=== PATIENT | female | born 1950 | race Caucasian/White ===

== ENCOUNTER 2019-07-10 21:49 | Emergency (ER) | payer MEDICARE, MEDICAID, SELFPAY ==
[2019-07-10 21:52] VITALS: BP 187/113; PULSE 80; RESP 16; TEMP 36.9; O2SAT 93; BMI 25.4
--- NOTE | 2019-07-10 21:53 | ED_ITS ---
Entered by Mely Stroud, acting as scribe for Telly Walker MD HPI - Chest Pain General: Chief Complaint: Chest Pain Stated Complaint: cp/headache Time Seen by Provider: 07/10/19 21:50 Source: patient and family Mode of arrival: ambulatory History of Present Illness: HPI narrative: 68 y/o female presents to the ED with complaint of chest pain. Pt states she is SOB and is experiencing sharp pains in the center of her chest. She states she has a hx of aortic aneurysom. Upon exam, pt has a PADILLA (01/05). MD complaint: chest pain and other (PADILLA) Pertinent past history: known aortic aneurysm Timing of current episode: constant Prior episodes: Yes Pain location: substernal Pain radiation: none Quality: sharp Relieving factors: nothing Exacerbating factors: palpation Associated symptoms: Deny abdominal pain, dyspnea, fever(s), nausea or vomiting Review of Systems Const: Denies: fever, chills, body aches or change in appetite Eyes: Denies: blurry vision or eye discomfort ENMT: Denies: throat pain or dental pain Card: Reports: chest pain Resp: Denies: shortness of breath GI: Denies: abdominal pain, nausea, vomiting or diarrhea : Denies: painful urination Musc: Denies: neck pain or back pain Skin/Breast: Denies: rash Neuro: Reports: headache Psych: Denies: depression Jose Alfredo/Lymph: Denies: easy bruising All/Imm: Denies: hives PFSH ED PFSH: Statuses (acute, chronic, etc) shown below reflect problem list status as previously entered and may not be historically accurate Social History Smoking and tobacco status: never smoked Physical Exam Const: COMMON NORMALS: no apparent distress, oriented x3 and healthy appearing HENMT: COMMON NORMALS: normocephalic and head/scalp atraumatic HEAD & SCALP: normocephalic and atraumatic Eye: COMMON NORMALS: PERRL and EOMs intact bilaterally PUPIL: Yes PERRL Neck/C-Spine: COMMON NORMALS: full ROM and supple Chest: CHEST: Yes tenderness (point tenderness) Resp: COMMON NORMALS: normal respiratory effort, no retractions, no use of accessory muscles and clear to auscultation bilaterally AUSCULTATION: clear to auscultation bilaterally Cardio: COMMON NORMALS: regular rate, regular rhythm and no murmurs RATE: regular rate RHYTHM: regular rhythm GI: COMMON NORMALS: normal to inspection, nondistended, normoactive bowel sounds, soft to palpation, non-tender and no masses PALPATION: Yes soft Extremity: COMMON NORMALS: normal to inspection and full ROM Neuro: COMMON NORMALS: oriented x3, moves all extremities and no focal motor deficits Psych: COMMON NORMALS: mental status grossly normal, thought process normal and cooperative THOUGHT PROCESS: normal thought process Skin: COMMON NORMALS: no rashes or lesions noted and no wounds GENERAL SKIN EXAM: no rashes or lesions noted Course Vital Signs: Vital signs: Vital Signs Temperature 98.4 F 07/10/19 21:52 Pulse Rate 86 07/11/19 01:04 Respiratory Rate 20 H 07/11/19 01:04 Blood Pressure 178/110 07/11/19 01:04 Pulse Oximetry 96 07/11/19 01:04 MDM - Chest Pain MDM Narrative: Medical decision making narrative: Patient presents here with chest pain is atypical in nature. Patient is point tender in her anterior chest that reproduces her pain. Her initial and repeat troponins are negative. CT chest here is negative. She has no signs of cardiac cause or pulmonary bruising. Patient is stable for discharge and is to follow-up with primary care doctor in 3 to 5 days return if worsening. Lab Data: Labs: Lab Results 07/10/19 07/10/19 07/10/19 Range/Units 22:06 22:06 22:06 WBC 6.5 (4.0-10.0) 10^3/ uL RBC 4.18 (4.1-5.3) 10^6/u L Hgb 11.9 (11.5-15.3) g/dL Hct 36.8 L (37.0-47.0) % MCV 88.0 (81-99) fL MCH 28.5 (28.0-34.0) pg MCHC 32.3 (30.0-36.0) g/dL RDW 13.8 (12.1-15.1) % Plt Count 244 (130-400) 10^3/c mm MPV 10.3 (7.4-10.4) fL Neut % (Auto) 48.0 % Lymph % (Auto) 37.7 % [place] % (Auto) 9.0 % Eos % (Auto) 4.3 % Baso % (Auto) 0.8 % Neut # (Auto) 3.1 (1.8-7.7) 10^3/u L Lymph # (Auto) 2.4 (0.8-4.8) 10^3/u L [place] # (Auto) 0.6 (0.2-0.9) 10^3/u L Eos # (Auto) 0.3 (0.0-0.8) 10^3/u L Baso # (Auto) 0.1 (0.0-0.1) 10^3/u L Nucleated RBC % (a uto) 0 % Nucleated RBCs # 0.0 /100WBC Sodium 142 (136-145) mmol/L Potassium 3.5 (3.5-5.1) mmol/L Chloride 102 (98-107) mmol/L Carbon Dioxide 31 H (22-29) mmol/L Anion Gap 12.5 (5-19) BUN 11 (8-23) mg/dL Creatinine 0.8 (0.5-0.9) mg/dL GFR Calculation 71.1 L (90-130) mL/min Glucose 141 H (65-115) mg/dL Calcium 9.3 (8.5-10.5) mg/dL Total Bilirubin 0.2 (0.15-1.2) mg/dL AST 18 (0-32) U/L ALT 12 (0-33) U/L Alkaline Phosphata se 103 (35-105) IU/L Troponin T Baselin e 8 (0-10) ng/mL Troponin T 120 Min [place] (0-10) ng/mL Delta Troponin T (0-10) ABS# Total Protein 7.3 (6.6-8.7) g/dL Albumin 4.4 (3.5-5.2) g/dL Globulin 2.9 (1.3-4.6) g/dL 07/10/19 Range/Units 23:58 WBC (4.0-10.0) 10^3/ uL RBC (4.1-5.3) 10^6/u L Hgb (11.5-15.3) g/dL Hct (37.0-47.0) % MCV (81-99) fL MCH (28.0-34.0) pg MCHC (30.0-36.0) g/dL RDW (12.1-15.1) % Plt Count (130-400) 10^3/c mm MPV (7.4-10.4) fL Neut % (Auto) % Lymph % (Auto) % [place] % (Auto) % Eos % (Auto) % Baso % (Auto) % Neut # (Auto) (1.8-7.7) 10^3/u L Lymph # (Auto) (0.8-4.8) 10^3/u L [place] # (Auto) (0.2-0.9) 10^3/u L Eos # (Auto) (0.0-0.8) 10^3/u L Baso # (Auto) (0.0-0.1) 10^3/u L Nucleated RBC % (a uto) % Nucleated RBCs # /100WBC Sodium (136-145) mmol/L Potassium (3.5-5.1) mmol/L Chloride (98-107) mmol/L Carbon Dioxide (22-29) mmol/L Anion Gap (5-19) BUN (8-23) mg/dL Creatinine (0.5-0.9) mg/dL GFR Calculation (90-130) mL/min Glucose (65-115) mg/dL Calcium (8.5-10.5) mg/dL Total Bilirubin (0.15-1.2) mg/dL AST (0-32) U/L ALT (0-33) U/L Alkaline Phosphata se (35-105) IU/L Troponin T Baselin e (0-10) ng/mL Troponin T 120 Min [place] 8.10 (0-10) ng/mL Delta Troponin T 0.10 (0-10) ABS# Total Protein (6.6-8.7) g/dL Albumin (3.5-5.2) g/dL Globulin (1.3-4.6) g/dL Imaging Data^: CT Chest: Radiologist's impression: Ordering Provider/Ordering MD: Telly Walker MD Date of Service: 07/10/19 Procedure(s): CT angio chest 37739 Accession Number(s): [id number] Report Number: [id number] PROCEDURE INFORMATION: Exam: CT Angiography Chest With Contrast Exam date and time: 07/10/2019 10:41 PM Age: 68 years old Clinical indication: Shortness of breath; Chest pain; Type not specified; Prior surgery; Surgery date: 6+ months; Surgery type: RT lower lobectomy; Patient HX: HX lung CA; Additional info: Cp TECHNIQUE: Imaging protocol: Computed tomographic angiography of the chest with intravenous contrast. 3D rendering: MIP and/or 3D reconstructed images were created by the technologist. Total DLP: 527.15 mGy-cm Radiation optimization: All CT scans at this facility use at least one of these dose optimization techniques: automated exposure control; mA and/or kV adjustment per patient size (includes targeted exams where dose is matched to clinical indication); or iterative reconstruction. Contrast material: OMNI 350; Contrast volume: 87.7 ml; Contrast route: 18G; COMPARISON: CT chest w con* [id number] 05/07/2019 1:33 PM FINDINGS: Pulmonary arteries: Normal. No pulmonary emboli. Aorta: Unremarkable. No aortic aneurysm. No aortic dissection. Lungs: Right lung lobectomy changes. Right lung subsegmental atelectasis. Pleural space: Small left pleural effusion. Heart: Unremarkable. No cardiomegaly. No pericardial effusion. Lymph nodes: Unremarkable. No enlarged lymph nodes. Bones/joints: Unremarkable. No acute fracture. Soft tissues: Unremarkable. CT/CT angio chest [id number] IMPRESSION: 1. Negative for pulmonary embolus. 2. Right lung lobectomy changes. 3. Small left pleural effusion. 4. Right lung subsegmental atelectasis. EKG Data^: EKG 1: Attestation: I personally reviewed and interpreted this EKG as follows: EKG interpretation date: 07/10/19 EKG interpretation time: 21:57 Interpretation: nsr hr [address] or t wave bnormalities qrs 84 qtc 392 EKG 2: Attestation: I personally reviewed and interpreted this EKG as follows: EKG interpretation date: 07/11/19 EKG interpretation time: 00:04 Interpretation: nsr hr [address] or t wave abnormalities qrs 84 qtc 405 Discharge Plan Discharge Patient Disposition: Home, Self-Care Clinical Impression: Chest pain Qualifiers: Chest pain type: unspecified Qualified Code(s): R07.9 - Chest pain, unspecified Condition: Stable Prescriptions: New EC-Naprosyn 500 mg tablet,delayed release (DR/EC) 500 mg PO BID PRN (Reason: pain) Qty: 20 RF: 0 Discharge Orders: Discharge Order (Routine); Ordered 07/11/19 Ordered By: Telly Walker Referrals: [facility] [Other] Cecilia Rubio [Primary Care Provider] - Discharge Diet: Advance as tolerated Discharge Activity: Resume usual activity Patient Instructions: Chest Pain (ED) Coding Level of Care Code ED Investor for Chg Fwd Exam Problem Focused The documentation recorded by the Maximus durand Ashley, accurately reflects the service I personally performed and the decisions made by Denise sun Korby, MD Jul 10, 2019 21:49
--- NOTE | 2019-07-10 21:55 | XR_ITS ---
WS: [id number] CHEST XRAY TECHNIQUE: Portable chest. CLINICAL INFORMATION: COMPARISON: FINDINGS: Shallow inspiration. Heart: Cardiomegaly. Lungs: Marked elevation right hemidiaphragm is unchanged from previous. Mild chronic emphysematous ch anges. No focal infiltrates. Bones: Mild thoracic curve convex left. XR/XR chest 1V portable [id number] IMPRESSION: 1. Stable cardiomegaly. 2. Chronic elevation right hemidiaphragm is unchanged. 3. No new pulmonary infiltrates.
--- NOTE | 2019-07-10 21:56 | ECG_ITS ---
Measurements Intervals [place] Rate: 82 P: 44 NM: 134 QRS: 14 QRSD: 84 T: 27 QT: 354 QTc: 414 SINUS RHYTHM NONSPECIFIC T-WAVE ABNORMALITY Compared to ECG 03/26/2019 18:39:58 T-wave abnormality now present Electronically Signed On 07-11-2019 20:40:39 MINERAL SURVEYOR by Rene Quick M.D. [id number]
[2019-07-10 22:13] VITALS: BP 192/120; PULSE 88; RESP 20; O2SAT 94
[2019-07-10 22:15] LABS: Basophils # 0.1 10^3/uL (0.0-0.1); Basophils % 0.8 %; Eosinophils # 0.3 10^3/uL (0.0-0.8); Eosinophils % 4.3 %; Hematocrit 36.8 % (37.0-47.0); Hemoglobin 11.9 g/dL (11.5-15.3); Lymphocytes # 2.4 10^3/uL (0.8-4.8); Lymphocytes % 37.7 %; Mean Corpuscular HGB Conc 32.3 g/dL (30.0-36.0); Mean Corpuscular Hemoglobin 28.5 pg (28.0-34.0); Mean Platelet Volume 10.3 fL (7.4-10.4); Monocytes # 0.6 10^3/uL (0.2-0.9); Neutrophils # 3.1 10^3/uL (1.8-7.7); Nucleated Red Blood Cells % 0 %; Platelet Count 244 10^3/cmm (130-400); Red Blood Count 4.18 10^6/uL (4.1-5.3); Red Cell Distribution Width 13.8 % (12.1-15.1); White Blood Count 6.5 10^3/uL (4.0-10.0)
[2019-07-10 22:17] VITALS: RESP 18; O2SAT 96
[2019-07-10] MEDS: aspirin 81 mg Chew Tablet 324 MG PO (22:17)
[2019-07-10] MEDS: morphine 4 mg/mL SDV 1 mL IVP (22:17)
[2019-07-10] MEDS: nitroglycerin 0.4 mg sublingual Tablet SUBLINGUAL (22:20)
--- NOTE | 2019-07-10 22:23 | CTR_ITS ---
PROCEDURE INFORMATION: Exam: CT Angiography Chest With Contrast Exam date and time: 07/10/2019 10:41 PM Age: 68 years old Clinical indication: Shortness of breath; Chest pain; Type not specified; Prior surgery; Surgery date: 6+ months; Surgery type: RT lower lobectomy; Patient HX: HX lung CA; Additional info: Cp TECHNIQUE: Imaging protocol: Computed tomographic angiography of the chest with intravenous contrast. 3D rendering: MIP and/or 3D reconstructed images were created by the technologist. Total DLP: 527.15 mGy-cm Radiation optimization: All CT scans at this facility use at least one of these dose optimization techniques: automated exposure control; mA and/or kV adjustment per patient size (includes targeted exams where dose is matched to clinical indication); or iterative reconstruction. Contrast material: OMNI 350; Contrast volume: 87.7 ml; Contrast route: 18G; COMPARISON: CT chest w con* [id number] 05/07/2019 1:33 PM FINDINGS: Pulmonary arteries: Normal. No pulmonary emboli. Aorta: Unremarkable. No aortic aneurysm. No aortic dissection. Lungs: Right lung lobectomy changes. Right lung subsegmental atelectasis. Pleural space: Small left pleural effusion. Heart: Unremarkable. No cardiomegaly. No pericardial effusion. Lymph nodes: Unremarkable. No enlarged lymph nodes. Bones/joints: Unremarkable. No acute fracture. Soft tissues: Unremarkable. CT/CT angio chest 29739 IMPRESSION: 1. Negative for pulmonary embolus. 2. Right lung lobectomy changes. 3. Small left pleural effusion. 4. Right lung subsegmental atelectasis. Radiation Dose CTDIVOL = (mGy): DLP = 527.15 (mGy-cm)
[2019-07-10 22:30] VITALS: BP 161/107; PULSE 81; RESP 17; O2SAT 95
[2019-07-10 22:35] LABS: Alanine Aminotransferase 12 U/L (0-33); Albumin Level 4.4 g/dL (3.5-5.2); Alkaline Phosphatase 103 IU/L (35-105); Anion Gap 12.5 (5-19); Aspartate Amino Transferase 18 U/L (0-32); Blood Urea Nitrogen 11 mg/dL (8-23); Calcium 9.3 mg/dL (8.5-10.5); Carbon Dioxide 31 mmol/L (22-29); Chloride 102 mmol/L (98-107); Creatinine Clr Calc Pharmacy 53.3163; Globulin 2.9 g/dL (1.3-4.6); Glomerular Filtration Rate 71.1 mL/min (90-130); Glucose 141 mg/dL (65-115); Potassium 3.5 mmol/L (3.5-5.1); Sodium 142 mmol/L (136-145); Total Bilirubin 0.2 mg/dL (0.15-1.2); Total Protein 7.3 g/dL (6.6-8.7)
[2019-07-10 22:37] LABS: Troponin(5th) Baseline 8 ng/mL (0-10)
[2019-07-10] MEDS: iohexol 350 mg/mL 100 mL Btl IV (22:48)
[2019-07-10 23:00] VITALS: BP 161/107
[2019-07-10 23:30] VITALS: PULSE 80; RESP 20; O2SAT 98
[2019-07-11] VITALS: BP 185/109; PULSE 78; RESP 22; O2SAT 97
--- NOTE | 2019-07-11 00:03 | PC.NURSE ---
EKG done at 0000 and shown to ER doctor
[2019-07-11 00:30] VITALS: BP 165/113; PULSE 83; RESP 28; O2SAT 97
[2019-07-11 01:00] VITALS: BP 165/113; PULSE 88; RESP 14; O2SAT 95
[2019-07-11 01:04] VITALS: BP 178/110; PULSE 86; RESP 20; O2SAT 96
[2019-07-11 01:22] VITALS: O2SAT 98
--- NOTE | 2019-07-11 03:56 | ECG_ITS ---
Measurements Intervals [place] Rate: 84 P: 54 VT: 132 QRS: 23 QRSD: 84 T: 29 QT: 366 QTc: 433 SINUS RHYTHM Compared to ECG 03/26/2019 18:39:58 No significant changes Electronically Signed On 07-11-2019 20:42:07 OVEN TENDER [employer]AGELS by Rene Quick M.D. [id number]
== END 2019-07-11 01:26 | disposition home or self-care (01) ==
PROVIDERS: Emergency Provider Emergency Medicine; PCP Nurse Practitioner Family
DX: R07.89 Other chest pain (principal)
CPT/HCPCS: 36415; 71045; 71275; 80053; 84484; 85025; 93005; 96374; 96375; 99283; 99284; J2270; Q9967

== ENCOUNTER 2019-11-28 09:17 | Outpatient (CLI) | payer MEDICARE, MEDICAID, SELFPAY ==
--- NOTE | 2019-11-28 09:28 | CT_ITS ---
WS: [id number] CT NECK TECHNIQUE: Contrast-enhanced CT of the neck with coronal and sagittal reformatted images. CLINICAL INFORMATION: LOCALIZED SWELLING, MASS LUMP NECK COMPARISON: DLP: 559.[address] scans at [facility] use at least one of these dose optimization techniques: automat ed exposure control; mA and/or kV adjustment per patient size (includes targeted exams where dose is matched to clinical indication); or iterative reconstruction. FINDINGS: Parotid glands are normal in appearance. Normal right submandibular gland. Left submandibular gland h as been resected. Tongue base is normal in appearance. Normal parapharyngeal fat. No evidence of supr aglottic or glottic mass. Normal epiglottis and piriform sinuses. Nodular right thyroid unchanged in appearance. No cervical lymphadenopathy. Right globe prosthesis. Mastoid air cells are well aerated. Frontal sinu ses are well aerated. A few prominent lymph nodes in the supraclavicular regions bilaterally not path ologically enlarged. Lung apices are well aerated. Slightly ectatic ascending thoracic aorta measurin g 4.[address]/CT neck w con* [id number] IMPRESSION: 1. No evidence of supraglottic or glottic mass. 2. Resection of the left submandibular gland. Salivary glands otherwise unrema rkable. 3. A few prominent cervical and supraclavicular lymph nodes although not patho logically enlarged. No cervical lymphadenopathy. 4. Nodular right thyroid gland is unchanged. 5. Ectatic ascending thoracic aorta measuring 4.0 CM. 6. Right globe prosthesis.
--- NOTE | 2019-11-28 09:29 | FL_ITS ---
WS: [id number] ESOPHAGRAM TECHNIQUE: Double contrast examination was performed with thin and thick barium. Upright and ESTEVES imag es were obtained. CLINICAL INFORMATION: LOCALIZED SWELLING MASS LUMP NECK COMPARISON: None. FINDINGS: Swallowing: Normal oropharyngeal phase. No evidence of aspiration or penetration. Esophagus: Mild esophageal dysmotility with delayed emptying and tertiary contractions. Mild esophage al dilatation with standing column of contrast in the upright imaging. No stricture or mass. Gastroesophageal reflux: None observed Fluoroscopy time: 3.1 minutes. FL/FL barium swallow [id number] IMPRESSION: 1. No evidence of aspiration penetration. 2. Moderate esophageal dysmotility with tertiary contractions and delayed empt beverly. Standing column of contrast in the upright imaging with mild esophageal d ilatation. 3. No evidence of esophageal stricture or obstructing mass. 4. No significant hiatal hernia. 5. Patient could not swallow the barium tablet. 6. No reflux observed.
[2019-11-28 10:24] LABS: Blood Urea Nitrogen 13 mg/dL (8-23); Glomerular Filtration Rate 70.9 mL/min (90-130)
[2019-11-28] MEDS: iohexol 300 mg/mL 100 mL Btl IV (10:52)
== END 2019-11-28 09:18 | disposition home or self-care (01) ==
LOC: CT 09:21
PROVIDERS: PCP Nurse Practitioner Family; Visit Provider Specialist
DX: R22.1 Localized swelling, mass and lump, neck (principal); R13.19 Other dysphagia
CPT/HCPCS: 36415; 70491; 74220; 82565; 84520

== ENCOUNTER 2020-11-19 10:22 | Outpatient (CLI) | payer MEDICARE, MEDICAID, SELFPAY ==
--- NOTE | 2020-11-19 11:00 | CT_ITS ---
WS: [id number] CT CHEST TECHNIQUE: Noncontrast CT of the chest with coronal and sagittal reformatted images. CLINICAL INFORMATION: cancer survelliance COMPARISON: CT chest July 10, 2019 and DLP: 639.[address] scans at [facility] use at least one of these dose optimization techniques: automat ed exposure control; mA and/or kV adjustment per patient size (includes targeted exams where dose is matched to clinical indication); or iterative reconstruction. FINDINGS: Prior postoperative changes partial right lobectomy. Postoperative changes along the right infrahilar lung. Mild volume loss right lung elevation right hemidiaphragm unchanged. Moderate chronic emphysem atous changes. No mediastinal or hilar lymphadenopathy. Ectatic ascending thoracic aorta measuring 3. 8 cm unchanged from previous. Normal caliber descending thoracic aorta. No suspicious pulmonary parenchymal opacities. No evidence of recurrent or progressive disease in the chest. No axillary lymphadenopathy. A few tiny low-attenuation lesions right thyroid lobe appear unc hanged. A few tiny low-attenuation lesions in the liver too small to characterize may represent hepatic cysts . This appears similar to previous. Adrenal glands are normal. Marked fatty atrophy of the pancreas. CT/CT chest wo con [id number] IMPRESSION: 1. Prior postoperative changes right thoracotomy with partial right lung resec tion. 2. No evidence of recurrent or progressed disease. No suspicious pulmonary par enchymal opacities. 3. No mediastinal or hilar lymphadenopathy. 4. Stable ectatic ascending thoracic aorta measuring 3.8 cm. 5. No other changes from previous.
== END 2020-11-19 10:23 | disposition home or self-care (01) ==
LOC: RADWPI 10:28
PROVIDERS: PCP Nurse Practitioner Family; Visit Provider Internal Medicine Pulmonary Disease
DX: Z85.118 Personal history of other malignant neoplasm of bronchus and lung (principal); I77.810 Thoracic aortic ectasia
CPT/HCPCS: 71250

== ENCOUNTER 2020-11-27 13:25 | Outpatient (CLI) | payer MEDICARE, MEDICAID, SELFPAY ==
--- NOTE | 2020-11-27 13:37 | MM_ITS ---
WS: [id number] SCREENING DIGITAL MAMMOGRAM WITH CAD HISTORY: SCREEN COMPARISON: 08/03/2017 and 07/17/2015 Bilateral CC and MLO views submitted. Computer aided detection analyzed. Breast composition: There are scattered areas of fibroglandular density. No suspicious masses, microc alcifications or architectural distortion. MM/[place] [id number] IMPRESSION: BI-RADS: 1-Negative FOLLOW UP: 1 Year Follow-up
== END 2020-11-27 13:26 | disposition home or self-care (01) ==
LOC: RADSHAW 13:29
PROVIDERS: PCP Nurse Practitioner Family; Visit Provider Nurse Practitioner Family
DX: Z12.31 Encounter for screening mammogram for malignant neoplasm of breast (principal)
CPT/HCPCS: 77067

== ENCOUNTER → 2020-12-21 10:58 | Outpatient (BNVA) | payer MEDICARE, MEDICAID, SELFPAY | PROVIDERS: PCP Nurse Practitioner Family; Visit Provider Internal Medicine Rheumatology | DX: M05.79 Rheumatoid arthritis with rheumatoid factor of multiple sites without organ or systems involvement (principal); Z11.59 Encounter for screening for other viral diseases; Z11.1 Encounter for screening for respiratory tuberculosis; Z79.899 Other long term (current) drug therapy; Z71.89 Other specified counseling; M19.90 Unspecified osteoarthritis, unspecified site | CPT/HCPCS: 36415; 71046; 73130; 73630; 82306; 84132; 85651; 86140; 86480; 86704; 86803; 87340; 99204 ==

== ENCOUNTER 2020-12-21 12:38 | Outpatient (CLI) | payer MEDICARE, MEDICAID, SELFPAY ==
--- NOTE | 2020-12-21 12:51 | XR_ITS ---
WS: [id number] XR hand LT min 3V* [id number] REASON FOR EXAM: Z79.899 - Other half-way (current) drug therapy FINDINGS: Overall normal bony mineralization. Mild to moderate joint space narrowing with subchondral sclerosis in the MIP and DIP joints of the fi ngers and thumb. As on the left hand there is also involvement of the second metacarpal phalangeal bernabe int. There is subluxation of the carpal metacarpal joint of the thumb with extensive subchondral sclerosis and subchondral cystic change with significant subluxation of the metacarpal. There is no erosive change in their are no periaortic articular soft tissue calcifications. No calcification in the triangular fibrocartilage. 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
--- NOTE | 2020-12-21 12:51 | XR_ITS ---
WS: [id number] XR foot LT min 3V* [id number] REASON FOR EXAM: Z79.899 - Other shelter (current) drug therapy FINDINGS: Normal overall bone density. No focal bone lesion. Mild to moderate narrowing of the joint spaces with subarticular sclerosis in the DIP and MIP joints of the toes. Mild medial deviation at the metatarsal-phalangeal joint of the great toe. No bony erosions. No periarticular soft tissue abnormality. XR/XR foot LT min 3V* [id number] IMPRESSION: Arthropathy consistent with osteoarthritis.
--- NOTE | 2020-12-21 12:51 | XR_ITS ---
WS: [id number] XR foot RT min 3V* [id number] REASON FOR EXAM: Z79.899 - Other retirement (current) drug therapy FINDINGS: Overall normal bone density. No focal bone lesion. Mild to moderate narrowing of the joint space with subchondral sclerosis in the DIP and MIP joints of the toes. There is mild mild medial deviation of the metatarsal-phalangeal joint of the great toe. No erosions and no periarticular soft tissue abnormalities. XR/XR foot RT min 3V* [id number] IMPRESSION: Arthropathy compatible with osteoarthritis.
--- NOTE | 2020-12-21 12:51 | XR_ITS ---
WS: [id number] XR hand RT min 3V* [id number] REASON FOR EXAM: Z79.899 - Other halfway (current) drug therapy FINDINGS: The overall than density is within normal limits. There is mild joint space narrowing with subchondral sclerosis in the DIP and PIP joints of the finge rs and thumb. There are no erosions. There are no periarticular soft tissue calcifications. There is severe arthropathic change at the carpometacarpal joint of the thumb with significant erosio n of the greater multangular with subchondral sclerosis, bony spurring, and subluxation. Notably there is the same appearing arthropathic change in the metatarsal-phalangeal joint of the fir st finger. There is no calcification in the triangular fibrocartilage. XR/XR hand RT min 3V* [id number] IMPRESSION: Arthropathy as above most consistent with osteoarthritis.
--- NOTE | 2020-12-21 12:51 | XR_ITS ---
WS: [id number] Exam: XR chest 2V* [id number] Date/Time of Exam: 12/21/2020 12:51 PM Reason For Exam: Z79.899 - Other meterman (current) drug therapy Comparison 07/10/2019. Chronic elevation of the right diaphragm. The lungs are clear. Normal cardiomediastinal silhouette. B veronica structures are intact. XR/XR chest 2V* [id number] IMPRESSION: 1. Chronically elevated right diaphragm. No acute process and no change.
[2020-12-21 14:10] LABS: C Reactive Protein 7.2 mg/L (0.0-4.9); Potassium 3.8 mmol/L (3.5-5.1)
[2020-12-21 14:25] LABS: 25 Hydroxy Vitamin D 35 ng/mL (30-100)
[2020-12-21 14:41] LABS: Hepatitis B Core AB, Total Non-Reactive (Nonreactive); Hepatitis B Surface Antigen Non-Reactive (Nonreactive); Hepatitis C Virus Antibody Non-Reactive (Nonreactive)
[2020-12-21 15:26] LABS: Erythrocyte Sedimentation Rate 24 mm/hr (0-15)
[2020-12-22 13:22] LABS: Cyclic Citrullinated Peptide <16 UNITS
[2020-12-23 15:06] LABS: Quantiferon Mitogen >10.00 IU/mL; Quantiferon Nil 0.02 IU/mL; Quantiferon Plus TB1 0.15 IU/mL; Quantiferon Plus TB2 0.22 IU/mL; Quantiferon TB Gold NEGATIVE (NEGATIVE)
== END 2020-12-21 12:39 | disposition home or self-care (01) ==
PROVIDERS: PCP Nurse Practitioner Family; Visit Provider Internal Medicine Rheumatology
DX: M19.90 Unspecified osteoarthritis, unspecified site (principal); Z79.899 Other long term (current) drug therapy; Z11.59 Encounter for screening for other viral diseases; Z11.1 Encounter for screening for respiratory tuberculosis
CPT/HCPCS: 36415; 71046; 73130; 73630; 82306; 84132; 85651; 86140; 86480; 86704; 86803; 87340

== ENCOUNTER 2021-02-01 21:37 | Emergency (ER) | payer MEDICARE, MEDICAID, SELFPAY ==
[2021-02-01 21:45] VITALS: BP 176/97; PULSE 82; RESP 20; TEMP 36.7; O2SAT 92; BMI 26.2
--- NOTE | 2021-02-01 22:32 | CTR_ITS ---
PROCEDURE INFORMATION: Exam: CT Head Without Contrast Exam date and time: 02/01/2021 10:32 PM Age: 70 years old Clinical indication: Pain and injury or trauma; Fall; Blunt trauma (contusions or hematomas); Dizziness and other: Off balance; Headache; Patient HX: On blood thinners; Additional info: Head injury, h/a x 2 weeks TECHNIQUE: Imaging protocol: Computed tomography of the head without contrast. Radiation optimization: All CT scans at this facility use at least one of these dose optimization techniques: automated exposure control; mA and/or kV adjustment per patient size (includes targeted exams where dose is matched to clinical indication); or iterative reconstruction. COMPARISON: 1. CT neck w con* [id number] 2019-11-28 10:[address] neck w con* [id number] 2019-05-07 13:28 RADIATION DOSE METRICS: Total DLP (mGy-cm): 790.82 FINDINGS: Brain: Diffuse mild cerebral age related volume loss. Mild patchy low attenuation in the white matter compatible with mild chronic small vessel ischemic disease. No midline shift, mass, fluid collection, or evidence of hemorrhage. Cerebral ventricles: Ventricular enlargement proportional to volume loss. Paranasal sinuses: Visualized sinuses are unremarkable. No fluid levels. Mastoid air cells: Visualized mastoid air cells are well aerated. Orbital cavity: Right globe prosthesis. Bones/joints: Unremarkable. No acute fracture. Soft tissues: Unremarkable. CT/CT head con* [id number] IMPRESSION: Mild involutional changes, no acute intracranial abnormality. Radiation Dose CTDIVOL = (mGy): DLP = 790.82 (mGy-cm)
--- NOTE | 2021-02-02 00:31 | ED_ITS ---
HPI - Headache General: Chief Complaint: Headache Stated Complaint: migraine x 2 weeks Time Seen by Provider: 02/02/21 00:18 Source: patient Mode of arrival: ambulatory Limitations: no limitations History of Present Illness: HPI Narrative: 70-year-old female states has been having a headache for about a week and a half. States she had a fall and headache began after that. States she has a long history of migraines this headache began gradually and is worsening. States that it is also waxed and waned currently her headaches a 7 out of 10. She states this feels like her p revious migraines it is not the worst headache of her life. Denies any neck pain. Denies any vomiting. She states it is improved with rest and dark rooms and worsened by loud sounds and bright lights. Associated symptoms: Deny chest pain, fever(s), nausea, rash or vomiting Review of Systems Const: Denies: fever(s), chills, body aches or change in appetite Eyes: Denies: blurry vision or eye discomfort ENMT: Denies: throat pain or dental pain Card: Denies: chest pain Resp: Denies: dyspnea GI: Denies: abdominal pain, nausea, vomiting or diarrhea : Denies: dysuria Musc: Denies: neck pain or back pain Skin/Breast: Denies: rash Neuro: Reports: headache(s) Psych: Denies: depression Jose Alfredo/Lymph: Denies: easy bruising All/Imm: Denies: urticaria PFSH ED PFSH: Medical History Atypical chest pain Benign essential HTN Blind right eye Chronic steroid use Dyslipidemia (high LDL; low HDL) H/O: lung cancer High risk medication use 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 History of thyroid cancer Hyperlipidemia Hypertension Immunization counseling Seropositive rheumatoid arthritis of multiple sites SOB (shortness of breath) Thoracic aortic aneurysm (TAA) Urgency incontinence Urgency of urination Surgical History H/O cardiac catheterization 09/2007 H/O total thyroidectomy also had a thyroid biopsy 09/14/2015 H/O: hysterectomy History of bladder surgery History of eye surgery History of lobectomy of lung right lower lung S/P appendectomy 1980 Family History Mother Colon cancer Hyperlipidemia Hypertension Stroke Heart disease CAD (coronary artery disease) Cancer Family/Other Breast cancer aunt maternal Cancer Family/Other Colon cancer uncle, maternal Stroke uncle maternal Brother Hypertension Brother Hyperlipidemia Grandmother Stroke maternal Other Suicide Denies family history of Clotting disorder Chronic kidney disease (CKD) Anesthesia complication Bleeding disorder Lung disease Social History Second hand smoke exposure: Yes Smoking risk assessment/counseling performed?: Yes Alcohol intake: never Lives independently: Yes Household members: family Marital status: / Current occupational status: disabled Pets and animals: Yes History of recent travel: No Current gender identity: Female Physical Exam Const: COMMON NORMALS: no acute distress, patient oriented x3 and healthy appearing HENMT: COMMON NORMALS: normocephalic and atraumatic HEAD & SCALP: normocephalic and atraumatic Eye: COMMON NORMALS: Equal, round and reactive pupils present and EOMs intact bilaterally PUPIL: Yes Equal, round and reactive pupils present Neck/C-Spine: COMMON NORMALS: full ROM and supple Chest: COMMONS NORMALS: normal inspection of the chest and normal palpation of entire chest wall Resp: COMMON NORMALS: normal respiratory effort, No retractions, No use of accessory muscles and clear to auscultation bilaterally AUSCULTATION: clear to auscultation bilaterally Cardio: COMMON NORMALS: regular rate, regular rhythm and No murmurs present (Cardio) RATE: regular rate RHYTHM: regular rhythm GI: COMMON NORMALS: Normal to inspection, nondistended, normoactive bowel sounds present, Soft to palpation, non-tender and no masses PALPATION: Yes Soft to palpation Extremity: COMMON NORMALS: normal to inspection and full ROM Neuro: COMMON NORMALS: patient oriented x3, moves all extremities and no focal motor deficits Psych: COMMON NORMALS: mental status grossly normal, Normal thought process present and cooperative THOUGHT PROCESS: Normal thought process present Skin: COMMON NORMALS: no rashes or lesions noted and no wounds GENERAL SKIN EXAM: no rashes or lesions noted Course Vital Signs: Vital signs: Vital Signs Temperature 98.1 F 02/01/21 21:45 Pulse Rate 82 02/01/21 21:45 Respiratory Rate 20 H 02/01/21 21:45 Blood Pressure 176/97 02/01/21 21:45 Pulse Oximetry 92 02/01/21 21:45 MDM - Headache MDM Narrative: Medical decision making narrative: Patient presents here with headache that is consistent with her previous migraine headaches. Her head CT here is normal she has no signs of meningitis or subarachnoid hemorrhage. Her headache is resolved after Reglan and Benadryl. She is stable for discharge is to follow-up with PCP and return if worsening. Imaging Data^: CT Head: Attestation: I personally reviewed and interpreted this imaging study as follows: Radiologist's impression: [employer] [place] [address] CT Scan Report Signed Patient: Kellen Chauhan Unit #: [id number] : 1950 Age/Sex: 70 / F ADM Date: 0 02/01/21 Loc: ER Room/Bed: Attending Dr: Ordering Provider/Ordering MD: Minna Fraser Sr, CUTTING AND SPLICING SUPERVISOREmanuel Date of Service: 02/01/21 Procedure(s): CT head wo con* [id number] Accession Number(s): [id number] Report Number: [id number] PROCEDURE INFORMATION: Exam: CT Head Without Contrast Exam date and time: 02/01/2021 10:32 PM Age: 70 years old Clinical indication: Pain and injury or trauma; Fall; Blunt trauma (contusions or hematomas); Dizziness and other: Off balance; Headache; Patient HX: On blood thinners; Additional info: Head injury, h/a x 2 weeks TECHNIQUE: Imaging protocol: Computed tomography of the head without contrast. Radiation optimization: All CT scans at this facility use at least one of these dose optimization techniques: automated exposure control; mA and/or kV adjustment per patient size (includes targeted exams where dose is matched to clinical indication); or iterative reconstruction. COMPARISON: 1. CT neck w con* [id number] 2019-11-28 10:[address] neck w con* [id number] 2019-05-07 13:28 RADIATION DOSE METRICS: Total DLP (mGy-cm): 790.82 FINDINGS: Brain: Diffuse mild cerebral age related volume loss. Mild patchy low attenuation in the white matter compatible with mild chronic small vessel ischemic disease. No midline shift, mass, fluid collection, or evidence of hemorrhage. Cerebral ventricles: Ventricular enlargement proportional to volume loss. Paranasal sinuses: Visualized sinuses are unremarkable. No fluid levels. Mastoid air cells: Visualized mastoid air cells are well aerated. Orbital cavity: Right globe prosthesis. Bones/joints: Unremarkable. No acute fracture. Soft tissues: Unremarkable. CT/CT head wo con* [id number] IMPRESSION: Mild involutional changes, no acute intracranial abnormality. Radiation Dose CTDIVOL = (mGy): DLP = 790.82 (mGy-cm) Dictated By: Gerald Kay MD Signed By: Gerald Kay MD Signed Date/Time: 02/01/212317 DD/ 16 Discharge Plan Discharge Patient Disposition: Home Clinical Impression: Headache Qualifiers: Headache type: unspecified Headache chronicity pattern: unspecified pattern Intractability: not intractable Qualified Code(s): R51.9 - Headache, unspecified Condition: Stable Prescriptions: No Action aspirin [Adult Low Dose Aspirin] 81 mg tablet,delayed release (DR/EC) 81 mg PO DAILY RF: 0 buspirone 5 mg tablet 5 mg PO TID RF: 0 clopidogrel 75 mg tablet 75 mg PO DAILY RF: 0 diphenhydramine HCl 50 mg capsule 50 mg PO DAILY RF: 0 duloxetine 60 mg capsule,delayed release(DR/EC) 60 mg PO BID RF: 0 furosemide 20 mg tablet 20 mg PO DAILY RF: 0 levothyroxine 75 mcg capsule 75 mcg PO DAILY RF: 0 losartan 100 mg tablet 100 mg PO DAILY RF: 0 quetiapine 300 mg tablet 300 mg PO DAILY RF: 0 quetiapine 50 mg tablet 50 mg PO DAILY RF: 0 simvastatin 40 mg tablet 40 mg PO DAILY RF: 0 vitamin B complex [B Complex-Vitamin B12] Tablet 1 tab PO DAILY RF: 0 oxybutynin chloride 15 mg tablet extended release 24hr 15 mg PO DAILY Qty: 30 RF: 12 hydroxyzine pamoate 25 mg capsule 25 mg PO TID PRN (Reason: itching) RF: 0 diclofenac sodium 75 mg tablet,delayed release (DR/EC) 75 mg PO BID PRN (Reason: pain) RF: 0 gabapentin 100 mg capsule 100 mg PO TID RF: 0 carvedilol 12.5 mg tablet 12.5 mg PO BID Qty: 60 RF: 5 albuterol sulfate 90 mcg/actuation aerosol powdr breath activated 1 inh inhalation QID PRN (Reason: shortness of breath or wheezing) Qty: 1 RF: 3 methotrexate sodium 2.5 mg tablet 15 mg PO .Q7days Qty: 30 RF: 3 pantoprazole 40 mg tablet,delayed release (DR/EC) 40 mg PO DAILY Qty: 30 RF: 3 folic acid 1 mg tablet 1 mg PO DAILY Qty: 90 RF: 3 amlodipine 5 mg tablet 5 mg PO DAILY Qty: 30 RF: 5 Discharge Orders: Discharge ED (Routine); Ordered 02/02/21 Ordered By: Telly Walker Referrals: Cecilia Rubio FNP [Primary Care Provider] - 1-3 days Discharge Diet: Advance as tolerated Discharge Activity: Resume usual activity Patient Instructions: Acute Headache (ED) Coding Level of Care Code ED [facility] Sharpshooter for Chg Fwd Exam Comprehensive
[2021-02-02] MEDS: diphenhydrAMINE 50 mg/mL SDV 1mL 25 MG IVP (00:50)
[2021-02-02] MEDS: metoclopramide 5 mg/mL SDV 2 mL IVP (00:51)
[2021-02-02] MEDS: ketorolac 30 mg/mL INJ 10 MG IVP (00:51)
[2021-02-02 01:25] VITALS: BP 142/78; PULSE 88; RESP 18; O2SAT 98
== END 2021-02-02 01:31 | disposition home or self-care (01) ==
PROVIDERS: Emergency Provider Emergency Medicine; PCP Nurse Practitioner Family
DX: R51.9 Headache, unspecified (principal); Z79.82 Long term (current) use of aspirin; Z79.02 Long term (current) use of antithrombotics/antiplatelets; I10 Essential (primary) hypertension; E78.5 Hyperlipidemia, unspecified; Z85.118 Personal history of other malignant neoplasm of bronchus and lung; Z85.850 Personal history of malignant neoplasm of thyroid; Z85.89 Personal history of malignant neoplasm of other organs and systems; Z90.2 Acquired absence of lung [part of]; Z77.22 Contact with and (suspected) exposure to environmental tobacco smoke (acute) (chronic)
CPT/HCPCS: 70450; 96374; 96375; 99283; J1200; J1885; J2765

== ENCOUNTER 2021-02-17 12:59 | Emergency (ER) | payer MEDICARE, MEDICAID, SELFPAY ==
[2021-02-17 13:07] VITALS: BP 153/96; PULSE 78; RESP 16; TEMP 36.8; O2SAT 97; BMI 27.2
--- NOTE | 2021-02-17 13:19 | CT_ITS ---
WS: [id number] CT scan of the head, 02/17/2021 Clinical Data: rule out brain bleed Comparison: CT head, 02/01/2021. DLP: 819.[address] scans at [facility] use at least one of these dose optimization techniques: automated e xposure control; mA and/or kV adjustment per patient size (includes targeted exams where dose is matc hed to clinical indication); or iterative reconstruction. Findings: The ventricular system is slightly dilated without shift. No recent infarct or hemorrhage is seen. Th ere are no abnormal intracerebral masses. The cerebellum and brainstem are not remarkable. Bony windows of the skull and skull base show no fractures or erosions. The mastoid air cells, internal salesperson al auditory canals, sella turcica and paranasal sinuses are unremarkable. 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 CT/CT head wo con* [id number] Impression: Moderate cerebral atrophy.
[2021-02-17] MEDS: tetanus-dipt-pertussis 0.5 mL SDV IM (13:30)
[2021-02-17] MEDS: acetaminophen 500 mg Tablet PO (13:35)
--- NOTE | 2021-02-17 13:51 | W.ED.GENADLT ---
HPI - General Adult General: Chief complaint: Wound/Laceration Stated complaint: WOKE W/PAIN 3 DAYS AGO BEHIND L EAR:NO BETTER Time Seen by Provider: 02/17/21 13:18 History of Present Illness: HPI narrative: Patient is a 70-year-old female who was seen and evaluated 02/02/2021 for headache who presents the emergency room after she was bit in the back in the back of her head by an insect. Patient denies any fever/chill, seizures, neurological symptoms. Denies any nausea/vomiting, rash, joint pain, melena, or hematochezia. Onset: 3 days ago Duration:3 days Location:home Severity:mild Review of Systems Narrative: Constitutional: No fever, no chills. HEENT: No vision changes CV: No chest pain, no palpitations PULM: no cough, no dyspnea. GI: No abdominal pain, no N/V/D. : No dysuria MSKEL: No muscle pain SKIN: +L scalp pain and erythema NEURO: No headache, no focal weakness. 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 History of thyroid cancer Hyperlipidemia Hypertension Immunization counseling Seropositive rheumatoid arthritis of multiple sites SOB (shortness of breath) Thoracic aortic aneurysm (TAA) Urgency incontinence Urgency of urination Surgical History H/O cardiac catheterization 09/2007 H/O total thyroidectomy also had a thyroid biopsy 09/14/2015 H/O: hysterectomy History of bladder surgery History of eye surgery History of lobectomy of lung right lower lung S/P appendectomy 1979 Family History Mother Colon cancer Hyperlipidemia Hypertension Stroke Heart disease CAD (coronary artery disease) Cancer Family/Other Breast cancer aunt maternal Cancer Family/Other Colon cancer uncle, maternal Stroke uncle maternal Brother Hypertension Brother Hyperlipidemia Grandmother Stroke maternal Other Suicide Denies family history of Clotting disorder Chronic kidney disease (CKD) Anesthesia complication Bleeding disorder Lung disease Social History Second hand smoke exposure: Yes Smoking risk assessment/counseling performed?: Yes Alcohol intake: never Lives independently: Yes Household members: family Marital status: / Current occupational status: disabled Pets and animals: Yes History of recent travel: No Current gender identity: Female Female Reproductive History: Date of last menstrual period: 08/20/20 Physical Exam Narrative: EXAM NARRATIVE: Head: Atraumatic Eyes: PERRL, conjunctiva without injection ENT: Mucous membrane moist NECK: Supple, ROM intact LUNGS: LCTAB, no crackles/rhonchi CV: RRR ABDOMEN: Soft, nontender in all quadrants EXTREMITY: Normal ROM SKIN: +L postauricular erythema with induration that is tender to palpation NEURO: Awake and alert, no focal motor deficits PSYCH: Normal mood and affect Course Vital Signs: Vital signs: Vital Signs Temperature 98.2 F 02/17/21 13:07 Pulse Rate 78 02/17/21 13:07 Respiratory Rate 16 02/17/21 13:07 Blood Pressure 153/96 02/17/21 13:07 Pulse Oximetry 97 02/17/21 13:07 MDM - General Adult MDM Narrative: Medical decision making narrative: 70-year-old female who presents emergency room with redness and central ulceration in the back. No suspicion for Lyme disease given no targetoid lesion currently. Patient has mild erythema surrounding with central ulceration. Bedside ultrasound did not show any signs of any acute underlying abscess. Decision was made to not I&D the lesion. I have offered antibiotics and patient agrees with close outpatient follow-up. Rx Keflex 500 mg twice daily. I have given patient strict follow up with Dr. Cecilia Rubio in the nxt 48 hrs to reevaluate the lesion to ensure that we are not dealing with lyme disease and to see if there is any improvement. Disposition: Discharge. Patient counseled regarding diagnostic impression, treatment plan. Patient given ED strict return precautions to return for continuation, worsening, or development of new symptoms. Instructed to f/u w/ PCP regarding symptoms today. Patient verbalized understanding. Discharge Plan Discharge Patient Disposition: Home Clinical Impression: Cellulitis Condition: Stable Prescriptions: New cephalexin 500 mg capsule 500 mg PO BID 7 Days Qty: 14 RF: 0 acetaminophen 500 mg tablet 500 mg PO Q6H PRN (Reason: pain) 5 Days Qty: 20 RF: 0 No Action aspirin [Adult Low Dose Aspirin] 81 mg tablet,delayed release (DR/EC) 81 mg PO DAILY RF: 0 buspirone 5 mg tablet 5 mg PO TID RF: 0 clopidogrel 75 mg tablet 75 mg PO DAILY RF: 0 diphenhydramine HCl 50 mg capsule 50 mg PO DAILY RF: 0 duloxetine 60 mg capsule,delayed release(DR/EC) 60 mg PO BID RF: 0 furosemide 20 mg tablet 20 mg PO DAILY RF: 0 levothyroxine 75 mcg capsule 75 mcg PO DAILY RF: 0 losartan 100 mg tablet 100 mg PO DAILY RF: 0 quetiapine 300 mg tablet 300 mg PO DAILY RF: 0 quetiapine 50 mg tablet 50 mg PO DAILY RF: 0 simvastatin 40 mg tablet 40 mg PO DAILY RF: 0 vitamin B complex [B Complex-Vitamin B12] Tablet 1 tab PO DAILY RF: 0 oxybutynin chloride 15 mg tablet extended release 24hr 15 mg PO DAILY Qty: 30 RF: 12 hydroxyzine pamoate 25 mg capsule 25 mg PO TID PRN (Reason: itching) RF: 0 diclofenac sodium 75 mg tablet,delayed release (DR/EC) 75 mg PO BID PRN (Reason: pain) RF: 0 gabapentin 100 mg capsule 100 mg PO TID RF: 0 carvedilol 12.5 mg tablet 12.5 mg PO BID Qty: 60 RF: 5 albuterol sulfate 90 mcg/actuation aerosol powdr breath activated 1 inh inhalation QID PRN (Reason: shortness of breath or wheezing) Qty: 1 RF: 3 methotrexate sodium 2.5 mg tablet 15 mg PO .Q7days Qty: 30 RF: 3 pantoprazole 40 mg tablet,delayed release (DR/EC) 40 mg PO DAILY Qty: 30 RF: 3 folic acid 1 mg tablet 1 mg PO DAILY Qty: 90 RF: 3 amlodipine 5 mg tablet 5 mg PO DAILY Qty: 30 RF: 5 Discharge Orders: Discharge ED (Routine); Ordered 02/17/21 Ordered By: Mckay Choi Referrals: Cecilia Rubio FNP [Primary Care Provider] - Discharge Diet: Advance as tolerated Discharge Activity: Resume usual activity Patient Instructions: Cellulitis (ED) Activity Restrictions/Additional Instructions: Please follow up with Dr. Cecilia Rubio for evaluation of your symptoms. Take your antibiotics for the infection. Come back if your symptoms worsen including fever/chill, worsening pain, any weakness in arms or legs or face, or any new or concerning symptoms. Coding Level of Care Code ED Refractive Surgeon for Socrates Peralta
== END 2021-02-17 14:04 | disposition home or self-care (01) ==
PROVIDERS: Emergency Provider Emergency Medicine; PCP Nurse Practitioner Family
DX: L03.811 Cellulitis of head [any part, except face] (principal); Z79.82 Long term (current) use of aspirin; Z79.84 Long term (current) use of oral hypoglycemic drugs; I10 Essential (primary) hypertension; E78.5 Hyperlipidemia, unspecified; Z85.118 Personal history of other malignant neoplasm of bronchus and lung; Z85.89 Personal history of malignant neoplasm of other organs and systems; Z85.850 Personal history of malignant neoplasm of thyroid; Z77.22 Contact with and (suspected) exposure to environmental tobacco smoke (acute) (chronic); Z23 Encounter for immunization
CPT/HCPCS: 70450; 90471; 90715; 99283

== ENCOUNTER 2021-02-18 11:04 | Outpatient (CLI) | payer MEDICARE, MEDICAID, SELFPAY ==
--- NOTE | 2021-02-18 11:00 | USCV_ITS ---
Kellen Chauhan Age: 70 Gender: F : 1950 Exam Date: 02/18/2021 11:57 Ordering Phys: Valdo Gay MD Technologist: Exam [place] [facility] [place]ication: DIZZYNESS Risk Factors: None Previous Vascular Surgery: Right Brachial BP: / Left Brachial BP: / Right Left Velocity (cm/s) Spectral Plaque Velocity (cm/s) Spectral Plaque Syst/Diast Broadening Syst/Diast Broadening 62.55/ 16.25 Prox CCA 56.60 / 12.70 59.45/ 16.50 Mid CCA 56.60 / 14.90 56.70/ 14.00 Distal CCA 50.70 / 13.40 64.50/ 18.10 Prox ICA 52.10 / 17.90 61.10/ 21.55 Mid ICA 49.20 / 12.70 57.65/ 16.45 Distal ICA 46.90 / 16.40 69.95 ECA 79.10 1.18 ICA/CCA 0.92 Antegrade Vertebral Antegrade 41.80/ 12.60 cm/s 29.20/ 6.90 cm/s Tri Subclavian Tri 50.00 77.40 CONCLUSIONS Right ICA stenosis <50%. Mild atheromatous plaque right carotid bulb/ICA. Left ICA stenosis <50%. Mild atheromatous plaque left carotid bulb/ICA. Normal antegrade Doppler flow noted in the right vertebral artery. Normal antegrade Doppler flow noted in the left vertebral artery. Michael Fam MD (Electronically Signed) Final Date: 19 February 2021 10:24 S
== END 2021-02-18 11:05 | disposition home or self-care (01) ==
LOC: RAD 11:11
PROVIDERS: PCP Nurse Practitioner Family; Visit Provider Internal Medicine Pulmonary Disease
DX: R42 Dizziness and giddiness (principal); I65.23 Occlusion and stenosis of bilateral carotid arteries
CPT/HCPCS: 93880

== ENCOUNTER 2021-02-23 21:46 | Emergency (ER) | payer MEDICARE, MEDICAID, SELFPAY ==
[2021-02-23 22:24] VITALS: BP 174/101; PULSE 79; RESP 20; TEMP 37.1; O2SAT 98; BMI 27.2
--- NOTE | 2021-02-23 23:29 | XRR_ITS ---
PROCEDURE INFORMATION: Exam: XR Left Finger(s) Exam date and time: 02/23/2021 11:29 PM Age: 70 years old Clinical indication: Injury or trauma; Laceration; Left; Middle finger; Patient HX: Dog bite to anterior aspect of distal phalange of 3rd digit. Moderate soft tissue damage and excessive bleeding. ; Additional info: Dog bit 3rd digt TECHNIQUE: Imaging protocol: XR Left fingers. Views: Minimum 2 views. COMPARISON: No relevant prior studies available. FINDINGS: Bones/joints: Normal. Soft tissues: There is a large laceration and soft tissue swelling of the distal 3rd digit. No foreign body. XR/XR finger LT min 2V [id number] IMPRESSION: No acute bony injury or foreign body.
--- NOTE | 2021-02-23 23:33 | ED_ITS ---
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 History of thyroid cancer Hyperlipidemia Hypertension Immunization counseling Seropositive rheumatoid arthritis of multiple sites SOB (shortness of breath) Thoracic aortic aneurysm (TAA) Urgency incontinence Urgency of urination Surgical History H/O cardiac catheterization 09/2007 H/O total thyroidectomy also had a thyroid biopsy 09/14/2015 H/O: hysterectomy History of bladder surgery History of eye surgery History of lobectomy of lung right lower lung S/P appendectomy 1979 Family History Mother Colon cancer Hyperlipidemia Hypertension Stroke Heart disease CAD (coronary artery disease) Cancer Family/Other Breast cancer aunt maternal Cancer Family/Other Colon cancer uncle, maternal Stroke uncle maternal Brother Hypertension Brother Hyperlipidemia Grandmother Stroke maternal Other Suicide Denies family history of Clotting disorder Chronic kidney disease (CKD) Anesthesia complication Bleeding disorder Lung disease Social History Second hand smoke exposure: Yes Smoking risk assessment/counseling performed?: Yes Alcohol intake: never Lives independently: Yes Household members: family Marital status: / Current occupational status: disabled Pets and animals: Yes History of recent travel: No Current gender identity: Female Female Reproductive History: Date of last menstrual period: 08/20/20 Course Vital Signs: Vital signs: Vital Signs Temperature 98.7 F 02/23/21 22:24 Pulse Rate 79 02/23/21 22:24 Respiratory Rate 20 H 02/23/21 22:24 Blood Pressure 174/101 02/23/21 22:24 Pulse Oximetry 98 02/23/21 22:24 Discharge Plan Discharge Patient Disposition: Home Clinical Impression: Finger laceration, Animal bite Condition: Stable Prescriptions: New Augmentin 875-125 mg tablet 1 tab PO BID 7 Days Qty: 14 RF: 0 No Action aspirin [Adult Low Dose Aspirin] 81 mg tablet,delayed release (DR/EC) 81 mg PO DAILY RF: 0 buspirone 5 mg tablet 5 mg PO TID RF: 0 clopidogrel 75 mg tablet 75 mg PO DAILY RF: 0 diphenhydramine HCl 50 mg capsule 50 mg PO DAILY RF: 0 duloxetine 60 mg capsule,delayed release(DR/EC) 60 mg PO BID RF: 0 furosemide 20 mg tablet 20 mg PO DAILY RF: 0 levothyroxine 75 mcg capsule 75 mcg PO DAILY RF: 0 losartan 100 mg tablet 100 mg PO DAILY RF: 0 quetiapine 300 mg tablet 300 mg PO DAILY RF: 0 quetiapine 50 mg tablet 50 mg PO DAILY RF: 0 simvastatin 40 mg tablet 40 mg PO DAILY RF: 0 vitamin B complex [B Complex-Vitamin B12] Tablet 1 tab PO DAILY RF: 0 oxybutynin chloride 15 mg tablet extended release 24hr 15 mg PO DAILY Qty: 30 RF: 12 hydroxyzine pamoate 25 mg capsule 25 mg PO TID PRN (Reason: itching) RF: 0 diclofenac sodium 75 mg tablet,delayed release (DR/EC) 75 mg PO BID PRN (Reason: pain) RF: 0 gabapentin 100 mg capsule 100 mg PO TID RF: 0 carvedilol 12.5 mg tablet 12.5 mg PO BID Qty: 60 RF: 5 albuterol sulfate 90 mcg/actuation aerosol powdr breath activated 1 inh inhalation QID PRN (Reason: shortness of breath or wheezing) Qty: 1 RF: 3 methotrexate sodium 2.5 mg tablet 15 mg PO .Q7days Qty: 30 RF: 3 pantoprazole 40 mg tablet,delayed release (DR/EC) 40 mg PO DAILY Qty: 30 RF: 3 folic acid 1 mg tablet 1 mg PO DAILY Qty: 90 RF: 3 amlodipine 5 mg tablet 5 mg PO DAILY Qty: 30 RF: 5 cephalexin 500 mg capsule 500 mg PO BID 7 Days Qty: 14 RF: 0 Referrals: Cecilia Rubio FNP [Primary Care Provider] - Discharge Diet: Advance as tolerated Discharge Activity: Resume usual activity Patient Instructions: Animal Bite (ED) Activity Restrictions/Additional Instructions: Our oil field caser will have you follow-up with Orthopedics hand surgeon in the next few days. You would be expected to have a phone call with our oil field caser who will put you on the schedule. Please take your antibiotics as instructed. Come back to the emergency room if you notice any worsening swelling, pain, fever/chills, or any new concerning complaints. Coding Level of Care Code ED Fish Cleaner Machine Tender for Socrates Peralta
--- NOTE | 2021-02-23 23:37 | ED_ITS ---
HPI - General Adult General: Chief complaint: Animal Bite Stated complaint: dog bite to L hand Time Seen by Provider: 02/23/21 23:10 History of Present Illness: HPI narrative: HPI: [70]yo patient w/ hx of HTN, HLD presenting to the ED after her puppy bite her on the L middle finger earlier today while she was trying to separate two puppies from fighting each other. Endorses mild bleeding that stopped. No other injuries. Patient UTD with tetanus. Does not think puppies are rabid. Onset: 30 minutes ago Duration: x 1 episode Location: home Severity: mild Review of Systems Narrative: Constitutional: No fever, no chills. HEENT: No vision changes CV: No chest pain, no palpitations PULM: No productive cough, no dyspnea. GI: No abdominal pain, no N/V/D. : No Dysuria MSKEL: No muscle pain SKIN: +L 3rd digit bite wound NEURO: No headache, no focal weakness. 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 History of thyroid cancer Hyperlipidemia Hypertension Immunization counseling Seropositive rheumatoid arthritis of multiple sites SOB (shortness of breath) Thoracic aortic aneurysm (TAA) Urgency incontinence Urgency of urination Surgical History H/O cardiac catheterization 09/2007 H/O total thyroidectomy also had a thyroid biopsy 09/14/2015 H/O: hysterectomy History of bladder surgery History of eye surgery History of lobectomy of lung right lower lung S/P appendectomy 1979 Family History Mother Colon cancer Hyperlipidemia Hypertension Stroke Heart disease CAD (coronary artery disease) Cancer Family/Other Breast cancer aunt maternal Cancer Family/Other Colon cancer uncle, maternal Stroke uncle maternal Brother Hypertension Brother Hyperlipidemia Grandmother Stroke maternal Other Suicide Denies family history of Clotting disorder Chronic kidney disease (CKD) Anesthesia complication Bleeding disorder Lung disease Social History Second hand smoke exposure: Yes Smoking risk assessment/counseling performed?: Yes Alcohol intake: never Lives independently: Yes Household members: family Marital status: / Current occupational status: disabled Pets and animals: Yes History of recent travel: No Current gender identity: Female Female Reproductive History: Date of last menstrual period: 08/20/20 Physical Exam Narrative: EXAM NARRATIVE: Head: Atraumatic Eyes: PERRL, conjunctiva without injection, eyes tracking ENT: Mucous membrane moist NECK: Supple without lymphadenopathy LUNGS: LCTAB CV: RRR ABDOMEN: Soft, nontender in all quadrants, no guarding or rebound tenderness EXTREMITY: Normal ROM SKIN: +L 3rd digit bite wound over the volar surfaces, cap refill of the affect digit wnl, no exposed tendon or bone. NEURO: Awake and alert. No focal weakness PSYCH: Cooperative mood and affect Course Vital Signs: Vital signs: Vital Signs Temperature 98.7 F 02/23/21 22:24 Pulse Rate 69 02/24/21 00:42 Respiratory Rate 18 02/24/21 00:42 Blood Pressure 157/88 02/24/21 00:42 Pulse Oximetry 99 02/24/21 00:42 MDM - General Adult MDM Narrative: Medical decision making narrative: 70F presenting with dog bite wound to the finger. After exploration of the wound, there was no evidence of a retained foreign body. No suspicion for underlying fracture. Workup: XR hand to rule out retained foreign objects TDAP: UTD Given high risks of wound infection, decision was made to not close the wound. No signs of finger fracture or retained foreign objects Rx augmentin BID x 7 days for prophylayxis. I have given patient follow up with our correctional casework specialist to be seen by our outpatient orthopedics hand surgeon. Patient aware of a call from our correctional casework specialist to schedule for appointment(s) and verbalizes understanding of the importance of following up. Disposition: Discharge. Patient has been given strict wound return precautions and instructions to follow up with their PMD and orthopedic hand surgeon in 2 days for a wound recheck. Patient aware sutures will need to be taken out in 7- 10 days. Imaging Data^: Other Imaging: Radiologist's impression: [address] [id number] ReportSigned Patient: Enzo Chauhan #: [id number]: 1950Acct#:[id number]/Sex: 70 / FADM Date: 02/23/21Loc: ERRoom/Bed:Attending Dr: Ordering Provider/Ordering MD: Mckay Choi MD Date of Service: 02/23/21 Procedure(s): XR finger LT min 2V [id number] Accession Number(s): [id number] Report Number: [id number] PROCEDURE INFORMATION: Exam: XR Left Finger(s) Exam date and time: 02/23/2021 11:29 PM Age: 70 years old Clinical indication: Injury or trauma; Laceration; Left; Middle finger; Patient HX: Dog bite to anterior aspect of distal phalange of 3rd digit. Moderate soft tissue damage and excessive bleeding. ; Additional info: Dog bit 3rd digt TECHNIQUE: Imaging protocol: XR Left fingers. Views: Minimum 2 views. COMPARISON: No relevant prior studies available. FINDINGS: Bones/joints: Normal. Soft tissues: There is a large laceration and soft tissue swelling of the distal 3rd digit. No foreign body. XR/XR finger LT min 2V 57317 IMPRESSION: No acute bony injury or foreign body. Dictated By:Haider Martines MDSigned By:Haider Martines MDSigned Date/Time:02/24/21D/ 9 Discharge Plan Discharge Patient Disposition: Home Clinical Impression: Finger laceration, Animal bite Condition: Stable Prescriptions: New Augmentin 875-125 mg tablet 1 tab PO BID 7 Days Qty: 14 RF: 0 No Action aspirin [Adult Low Dose Aspirin] 81 mg tablet,delayed release (DR/EC) 81 mg PO DAILY RF: 0 buspirone 5 mg tablet 5 mg PO TID RF: 0 clopidogrel 75 mg tablet 75 mg PO DAILY RF: 0 diphenhydramine HCl 50 mg capsule 50 mg PO DAILY RF: 0 duloxetine 60 mg capsule,delayed release(DR/EC) 60 mg PO BID RF: 0 furosemide 20 mg tablet 20 mg PO DAILY RF: 0 levothyroxine 75 mcg capsule 75 mcg PO DAILY RF: 0 losartan 100 mg tablet 100 mg PO DAILY RF: 0 quetiapine 300 mg tablet 300 mg PO DAILY RF: 0 quetiapine 50 mg tablet 50 mg PO DAILY RF: 0 simvastatin 40 mg tablet 40 mg PO DAILY RF: 0 vitamin B complex [B Complex-Vitamin B12] Tablet 1 tab PO DAILY RF: 0 oxybutynin chloride 15 mg tablet extended release 24hr 15 mg PO DAILY Qty: 30 RF: 12 hydroxyzine pamoate 25 mg capsule 25 mg PO TID PRN (Reason: itching) RF: 0 diclofenac sodium 75 mg tablet,delayed release (DR/EC) 75 mg PO BID PRN (Reason: pain) RF: 0 gabapentin 100 mg capsule 100 mg PO TID RF: 0 carvedilol 12.5 mg tablet 12.5 mg PO BID Qty: 60 RF: 5 albuterol sulfate 90 mcg/actuation aerosol powdr breath activated 1 inh inhalation QID PRN (Reason: shortness of breath or wheezing) Qty: 1 RF: 3 methotrexate sodium 2.5 mg tablet 15 mg PO .Q7days Qty: 30 RF: 3 pantoprazole 40 mg tablet,delayed release (DR/EC) 40 mg PO DAILY Qty: 30 RF: 3 folic acid 1 mg tablet 1 mg PO DAILY Qty: 90 RF: 3 amlodipine 5 mg tablet 5 mg PO DAILY Qty: 30 RF: 5 cephalexin 500 mg capsule 500 mg PO BID 7 Days Qty: 14 RF: 0 Discharge Orders: Discharge ED (Routine); Ordered 02/24/21 Ordered By: Mckay Choi Referrals: Cecilia Rubio FNP [Primary Care Provider] - Discharge Diet: Advance as tolerated Discharge Activity: Resume usual activity Patient Instructions: Animal Bite (ED) Activity Restrictions/Additional Instructions: Our correctional casework specialist will have you follow-up with Orthopedics hand surgeon in the next few days. You would be expected to have a phone call with our correctional casework specialist who will put you on the schedule. Please take your antibiotics as instructed. Come back to the emergency room if you notice any worsening swelling, pain, fever/chills, or any new concerning complaints. Coding Level of Care Code ED Slasher Sawyer for Socrates Peralta
--- NOTE | 2021-02-24 00:21 | PC.NURSE ---
Wound irrigated with 500mL sterile water. Nonadherent bandage and kerlix applied to control bleeding. Pt tolerated well. Wound care instructions given; verbalized understanding.
[2021-02-24 00:42] VITALS: BP 157/88; PULSE 69; RESP 18; O2SAT 99
--- NOTE | 2021-02-24 08:26 | DCPLANNER ---
Addendum entered by Valentine Mandujano 02/26/21 14:50: ortho called housing case manager and informed housing case manager that after physician review that patient will need to see primary care. Clinic will update patient. Original Note: general operations manager had message to schedule a follow up appointment for patient with ortho. general operations manager called the ortho clinic, spoke with Renita, gave clinic patients information. general operations manager was told that patients information would be printed and reviewed. Clinic will call patient with appointment information.
== END 2021-02-24 00:42 | disposition home or self-care (01) ==
PROVIDERS: Emergency Provider Emergency Medicine; PCP Nurse Practitioner Family
DX: S61.353A Open bite of left middle finger with damage to nail, initial encounter (principal); W54.0XXA Bitten by dog, initial encounter; Z79.02 Long term (current) use of antithrombotics/antiplatelets; Z79.82 Long term (current) use of aspirin; I10 Essential (primary) hypertension; E78.5 Hyperlipidemia, unspecified; Z85.118 Personal history of other malignant neoplasm of bronchus and lung; Z85.89 Personal history of malignant neoplasm of other organs and systems; Z85.850 Personal history of malignant neoplasm of thyroid; Z77.22 Contact with and (suspected) exposure to environmental tobacco smoke (acute) (chronic)
CPT/HCPCS: 73140; 99282

== ENCOUNTER 2021-03-23 11:36 | Outpatient (CLI) | payer MEDICARE, MEDICAID, SELFPAY ==
--- NOTE | 2021-03-23 11:46 | XR_ITS ---
WS: [id number] LEFT SHOULDER: 3 VIEW(S) TECHNIQUE: Internal and external rotation with Y view. HISTORY: shoulder pain after fall COMPARISON: None available. Mild narrowing of the AC joint and glenohumeral joint. No fractures are identified. XR/XR shoulder LT min 2V* [id number] IMPRESSION: Mild osteoarthritis. No fracture.
--- NOTE | 2021-03-23 11:46 | XR_ITS ---
WS: [id number] CERVICAL SPINE 3 VIEWS HISTORY: neck pain after fall COMPARISON: None available. Posterior cervical alignment is normal. No fractures. Posterior spinal laminar line in the prevertebr al soft tissues are normal. Lateral masses are aligned. The odontoid is intact. Mild bilateral facet joint arthritis throughout the mid and lower cervical spine. XR/XR cervical spine 3V* [id number] IMPRESSION: No cervical spine fracture.
--- NOTE | 2021-03-23 11:46 | XR_ITS ---
WS: [id number] RIGHT SHOULDER: 3 VIEW(S) TECHNIQUE: Internal and external rotation with Y view. HISTORY: shoulder pain after fall COMPARISON: None available. Seen only on the external rotation is a slight step-off and cortical discontinuity involving the medi al humeral head. Indeterminate for fracture. Mild narrowing of the AC joint and glenohumeral joint. Cortical irregularity along the superior surfa ce of the humeral head is probably degenerative. XR/XR shoulder RT min 2V* [id number] IMPRESSION: 1. Indeterminate for incomplete fracture involving the medial RIGHT humeral he ad. This could be an age-related osteophyte. 2. Otherwise mild degenerative changes of osteoarthritis.
== END 2021-03-23 11:37 | disposition home or self-care (01) ==
LOC: RAD 11:42
PROVIDERS: PCP Nurse Practitioner Family; Visit Provider Internal Medicine Pulmonary Disease
DX: M54.2 Cervicalgia (principal); W19.XXXA Unspecified fall, initial encounter; M19.012 Primary osteoarthritis, left shoulder; M19.011 Primary osteoarthritis, right shoulder
CPT/HCPCS: 72040; 73030

== ENCOUNTER 2021-04-06 08:55 | Outpatient (CLI) | payer MEDICARE, MEDICAID, SELFPAY ==
[2021-04-06 09:42] VITALS: BMI 27.2
--- NOTE | 2021-04-06 09:43 | NMCV_ITS ---
NM rolando perf SPECT r/s* [id number] Kellen Chauhan Age: 70 Gender: F : 1950 Exam Date: 04/06/2021 10:11 Ordering Phys: Steve Cerda MD ([email or web address]) Technologist: TONE Simpson Exam Location: [facility] Indications: CHEST PAIN STRESS TEST Please see separate stress test report in [facility] for full findings IMAGE PROTOCOL Rest/Stress 1 Lexiscan Day Radiopharmaceutical Dose (mCi) Administration Site Administered by Rest: Tc-99m 10.8 IV TONE Simpson Sestamibi Stress:Tc-99m 32.7 IV TONE Simpson Sestamibi Rest: 06-Apr-2021 60 Discovery 630 Stress: 06-Apr-2021 30 Discovery 630 0.4mg Lexiscan. Images obtained in supine and prone position. SPECT RESULTS Technical Quality: Excellent Raw Data Analysis: Normal Image Corrections: No attenuation or motion correction applied Summed Stress Score: 2 Summed Rest Score: 1 Summed Difference Score: 2 PERFUSION FINDINGS Small area of decreased tracer uptake in the mid inferolateral region with a complete reversibility. FUNCTIONAL RESULTS (calculated via Gated SPECT) Stress Image LV EF (%): 83 Stress EDV (mL):46 TID: 1.2 Stress ESV (mL):8 FUNCTIONAL FINDINGS: Segmental wall motion analysis revealing no gross wall motion normalities. IMPRESSIONS 1. Myocardial perfusion imaging revealing small area of reversible defect in the inferolateral region, suggestive of ischemia in the distribution of the left circumflex artery. Elevated transient ischemic dilatation ratio also is suggestive of ischemia. 2. Normal LV ejection fraction of 83%. 3. LV wall motion analysis revealing no gross wall motion normalities. 4. Normal LV volume. No similar previous studies are available for comparison Dr Steve Cerda MD [facility] (Electronically Signed) Final Date: 06 April 2021 17:27 S
--- NOTE | 2021-04-06 09:43 | ECG_ITS ---
[facility] Test Date: 2021-04-06 Pat Name: Kellen Chauhan Department: Room: Gender: Female Bi Architect: : 1950 Requested By: Steve Cerda Order Number: [id number] Susu MD: Steve Cerda M.D. Interpretive Statements NAME OF STUDY: LEXISCAN SESTAMIBI STRESS TEST INDICATION: Chest Pain, PROCEDURE: At the baseline, the EKG revealed normal sinus rhythm with nonspecific T wave changes.. The baseline blood pressure was 186/103 mm Hg with a heart rate of 69 beats/min. Lexiscan was infused over a period of 20 seconds. A total of 0.4 milligrams of Lexiscan was infused. The stress phase was continued for a total of 5 minutes. Heart rate at the end of the stress phase was 81 with a blood pressure 183/107. The EKG at the peak infusion revealed no significant changes. Sestamibi was injected 20 seconds after the Lexiscan infusion. Blood pressure at the end of the recovery phase was not recorded with a heart rate of 81 per minute. CONCLUSION: 1. No significant EKG changes with the LexiScan infusion 2. No LexiScan induced chest pain or cardiac arrhythmia 3. Normal blood pressure and heart rate response 4. Sestamibi/sestamibi perfusion scan pending; see separate report. Electronically Signed On 04-08-2021 23:24:22 [employer]TELLIGENCE DEVELOPER by Steve Cerda M.D. [email or web address]
[2021-04-06 11:01] VITALS: BP 183/107; PULSE 83
[2021-04-06] MEDS: regadenoson 0.4 Mg/5 ml Syringe IVP (11:01)
== END 2021-04-06 08:56 | disposition home or self-care (01) ==
LOC: CDL 08:58
PROVIDERS: PCP Nurse Practitioner Family; Visit Provider Internal Medicine Cardiovascular Disease
DX: R06.02 Shortness of breath; R07.89 Other chest pain
CPT/HCPCS: 78452; 93017; A9500; J2785

== ENCOUNTER → 2021-08-09 13:10 | Outpatient (BNVA) | payer MEDICARE, MEDICAID, SELFPAY | PROVIDERS: PCP Nurse Practitioner Family; Visit Provider Nurse Practitioner Family | DX: R06.02 Shortness of breath (principal); R94.39 Abnormal result of other cardiovascular function study | CPT/HCPCS: 80048; 85025; 85610; 99213; 99214 ==

== ENCOUNTER 2022-05-24 19:23 | Emergency (ER) | payer MEDICARE, MEDICAID, SELFPAY ==
[2022-05-24 19:25] VITALS: BMI 25.4
--- NOTE | 2022-05-24 19:27 | XRR_ITS ---
PROCEDURE INFORMATION: Exam: XR Lumbosacral Spine Exam date and time: 05/24/2022 7:29 PM Age: 71 years old Clinical indication: Injury or trauma; Fall; Swelling (edema) TECHNIQUE: Imaging protocol: Radiologic exam of the lumbosacral spine. Views: 2 or 3 views. COMPARISON: CR XR KUB [id number] 04/27/2019 3:45 PM FINDINGS: Tubes, catheters and devices: There is a spinal cord stimulator with the battery pack in the right soft tissues and the paddle projecting over the left sacrum, stable in position. Bones/joints: 5 [id number] vertebral bodies. Stable mild degenerative changes of the right and left sacroiliac joints. Vertebral body height is maintained. No subluxation. Multilevel degenerative changes of varying severity in the visualized spine. No acute fracture. Soft tissues: No paravertebral soft tissue abnormality. No radiopaque foreign body. Vasculature: Atherosclerotic changes in the visualized arteries. XR/XR lumbar spine 2-3V* [id number] IMPRESSION: 1. No acute fracture of the lumbar spine. CT scan would be recommended if there is continuing clinical concern for fracture. 2. Stable mild degenerative changes of the right and left sacroiliac joints. 3. Multilevel degenerative changes of varying severity in the visualized spine. 4. Incidental/nonacute findings are listed in the report.
--- NOTE | 2022-05-24 19:27 | ED_ITS ---
HPI - Fall General: Chief Complaint: Fall Stated Complaint: FALL Time Seen by Provider: 05/24/22 19:25 Source: patient and EMS Mode of arrival: EMS Limitations: no limitations History of Present Illness: 71-year-old female who is here by EMS she [facility] she states she landed on her buttocks mainly on her left buttock states she has left buttocks and low back pain she rates her pain a 5 out of 10 she denies any other injury she denies hitting her head denies any neck pain. Associated symptoms-after fall: Denies abdominal pain, chest pain or headache(s) Review of Systems Const: Denies: fever(s), chills, body aches or change in appetite Eyes: Denies: blurry vision or eye discomfort ENMT: Denies: throat pain or dental pain Card: Denies: chest pain Resp: Denies: dyspnea GI: Denies: abdominal pain, nausea, vomiting or diarrhea : Denies: dysuria Musc: Reports: extremity pain Skin/Breast: Denies: rash Neuro: Denies: headache(s) Psych: Denies: depression Jose Alfredo/Lymph: Denies: easy bruising All/Imm: Denies: urticaria PFSH ED PFSH: Medical History Atypical chest pain Benign essential HTN Blind right eye Chronic steroid use Dyslipidemia (high LDL; low HDL) H/O: lung cancer High risk medication use 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 History of thyroid cancer Hyperlipidemia Hypertension Immunization counseling Seropositive rheumatoid arthritis of multiple sites SOB (shortness of breath) Thoracic aortic aneurysm (TAA) Urgency incontinence Urgency of urination Surgical History H/O cardiac catheterization 09/2007 H/O total thyroidectomy also had a thyroid biopsy 09/14/2015 H/O: hysterectomy History of bladder surgery History of eye surgery History of lobectomy of lung right lower lung S/P appendectomy 1979 Family History Mother Colon cancer Hyperlipidemia Hypertension Stroke Heart disease CAD (coronary artery disease) Cancer Family/Other Breast cancer aunt maternal Cancer Family/Other Colon cancer uncle, maternal Stroke uncle maternal Brother Hypertension Brother Hyperlipidemia Grandmother Stroke maternal Other Suicide Denies family history of Clotting disorder Chronic kidney disease (CKD) Anesthesia complication Bleeding disorder Lung disease Social History Smoking and tobacco status: never smoked Second hand smoke exposure: Yes Smoking risk assessment/counseling performed?: Yes Alcohol intake: never Lives independently: Yes Household members: family Marital status: / Current occupational status: disabled Pets and animals: Yes History of recent travel: No Current gender identity: Female Female Reproductive History: Date of last menstrual period: 08/20/20 Physical Exam Const: COMMON NORMALS: no acute distress, average body habitus and patient oriented x3 HENMT: COMMON NORMALS: normocephalic and atraumatic HEAD & SCALP: normocephalic and atraumatic Eye: COMMON NORMALS: conjunctivae normal CONJUNCTIVA: Yes conjunctivae normal Neck/C-Spine: COMMON NORMALS: full ROM and supple Chest: COMMONS NORMALS: normal inspection of the chest and normal palpation of entire chest wall Resp: COMMON NORMALS: normal respiratory effort and clear to auscultation bilaterally EFFORT & INSPECTION: Yes able to speak in complete sentences AUSCULTATION: clear to auscultation bilaterally Cardio: COMMON NORMALS: regular rate and regular rhythm RATE: regular rate RHYTHM: regular rhythm GI: COMMON NORMALS: Normal to inspection, nondistended, normoactive bowel sounds present, Soft to palpation and non-tender INSPECTION: Yes normal to inspection PALPATION: Yes Soft to palpation : COMMON NORMALS: Yes no CVA tenderness BLADDER/KIDNEY EXAM: Yes no CVA tenderness Back/Pelvis: COMMON NORMALS: no CVA tenderness Extremity: NARRATIVE EXTREMITY EXAM: tenderness over left buttocks full rom of left hip Neuro: COMMON NORMALS: patient oriented x3 Psych: COMMON NORMALS: mental status grossly normal Skin: COMMON NORMALS: no rashes or lesions noted GENERAL SKIN EXAM: no rashes or lesions noted Course Vital Signs: Vital signs: Vital Signs Temperature 98.8 F 05/24/22 19:28 Pulse Rate 88 05/24/22 19:28 Respiratory Rate 16 05/24/22 19:28 Blood Pressure 166/94 05/24/22 19:28 Pulse Oximetry 96 05/24/22 19:28 Oxygen Delivery Me thod 05/24/22 19:28 MDM - Fall Medical Decision Making Patient presents here with buttocks contusion from a fall her x-rays here are normal she is able to ambulate without any issues she stable for discharge she is to follow-up with PCP and return if worsening. Lab Data Radiology Impressions Hip/Pelvis X-Ray 05/24/22 20:32 IMPRESSION: 1. No acute fracture. MRI of the pelvis would be recommended if clinical concern for fracture persists. 2. Incidental/nonacute findings are listed in the report. Discharge Plan Discharge Patient Disposition: Home Clinical Impression: Contusion of hip Condition: Stable Prescriptions: New Naprosyn 500 mg tablet 500 mg PO BID PRN (Reason: pain) Qty: 20 0RF No Action aspirin [Adult Low Dose Aspirin] 81 mg tablet,delayed release (DR/EC) 81 mg PO DAILY buspirone 5 mg tablet 5 mg PO TID clopidogrel 75 mg tablet 75 mg PO DAILY diphenhydramine HCl 50 mg capsule 50 mg PO DAILY duloxetine 60 mg capsule,delayed release(DR/EC) 60 mg PO BID furosemide 20 mg tablet 20 mg PO DAILY levothyroxine 75 mcg capsule 75 mcg PO DAILY losartan 100 mg tablet 100 mg PO DAILY quetiapine 300 mg tablet 300 mg PO DAILY quetiapine 50 mg tablet 50 mg PO DAILY simvastatin 40 mg tablet 40 mg PO DAILY vitamin B complex [B Complex-Vitamin B12] Tablet 1 tab PO DAILY oxybutynin chloride 15 mg tablet extended release 24hr 15 mg PO DAILY Qty: 30 12RF hydroxyzine pamoate 25 mg capsule 25 mg PO TID PRN (Reason: itching) diclofenac sodium 75 mg tablet,delayed release (DR/EC) 75 mg PO BID PRN (Reason: pain) gabapentin 100 mg capsule 100 mg PO TID albuterol sulfate 90 mcg/actuation aerosol powdr breath activated 1 inh inhalation QID PRN (Reason: shortness of breath or wheezing) Qty: 1 3RF pantoprazole 40 mg tablet,delayed release (DR/EC) 40 mg PO DAILY Qty: 30 3RF amlodipine 5 mg tablet 5 mg PO DAILY Qty: 30 5RF potassium chloride [Klor-Con M20] 20 mEq tablet,ER particles/crystals 20 meq PO DAILY Qty: 90 3RF Rx Instructions: For the first 3 days take 20 mEq twice a day, then 20 mg daily. methotrexate sodium 2.5 mg tablet See Rx Instructions .ROUTE .COMPLEX Qty: 30 3RF Dose Instruction: TAKE SIX TABLETS BY MOUTH ON MONDAY EACH Rx Instructions: TAKE SIX TABLETS BY MOUTH ON MONDAY EACH WEEK carvedilol 12.5 mg tablet 12.5 mg PO BID Qty: 180 2RF Rx Instructions: must administer with a meal/food folic acid 1 mg tablet See Rx Instructions .ROUTE .COMPLEX Qty: 90 0RF Dose Instruction: Take 1 tablet by mouth once daily Rx Instructions: Take 1 tablet by mouth once daily Discharge Orders: Discharge ED (Routine); Ordered 05/24/22 Ordered By: Telly Walker Referrals: Cecilia Rubio FNP [Primary Care Provider] - Discharge Diet: Advance as tolerated Discharge Activity: Resume usual activity Patient Instructions: Hip Contusion (ED) Coding Level of Care Code ED Biology Department Chair for Socrates Fwd Exam Comprehensive
[2022-05-24 19:28] VITALS: BP 166/94; PULSE 88; RESP 16; TEMP 37.1; O2SAT 96
--- NOTE | 2022-05-24 20:21 | XR_ITS ---
WS: [id number] Right hip, 2 views, AP pelvis, 05/24/2022 Clinical Data: TAKEN IN ERROR,FALL Comparison: None. Findings: No fractures or dislocations are seen. No hip fractures are seen.. The soft tissues are not remarkabl e. The adjacent pelvis is normal. There is a generator overlying the right ilium with the distal wires overlying the left sacrum. XR/XR hip RT 2-3V wo/w pel* [id number] Impression: Negative pelvis and right hip.
--- NOTE | 2022-05-24 20:32 | XRR_ITS ---
PROCEDURE INFORMATION: Exam: XR Left Hip Exam date and time: 05/24/2022 7:57 PM Age: 71 years old Clinical indication: Injury or trauma; Fall; Blunt trauma (contusions or hematomas); Left; Hip TECHNIQUE: Imaging protocol: Radiologic exam of the Left hip. Views: 2 or 3 views hip with pelvis when performed. COMPARISON: No relevant prior studies available. FINDINGS: Tubes, catheters and devices: The paddle from a spinal stimulator projects over the left sacrum, stable in position. Bones/joints: Stable degenerative changes at the left hip and left sacroiliac joint. No acute fracture. No dislocation. Normal bone mineralization. Soft tissues: No soft tissue swelling. No radiopaque foreign body. XR/XR hip LT 2-3V wo/w pel* [id number] IMPRESSION: 1. No acute fracture. MRI of the pelvis would be recommended if clinical concern for fracture persists. 2. Incidental/nonacute findings are listed in the report.
[2022-05-24 20:56] VITALS: BP 162/91; PULSE 81; RESP 16; O2SAT 93
== END 2022-05-24 20:57 | disposition home or self-care (01) ==
PROVIDERS: Emergency Provider Emergency Medicine; PCP Nurse Practitioner Family
DX: S70.02XA Contusion of left hip, initial encounter (principal); W19.XXXA Unspecified fall, initial encounter; Y92.512 Supermarket, store or market as the place of occurrence of the external cause; I10 Essential (primary) hypertension; E78.5 Hyperlipidemia, unspecified; Z85.118 Personal history of other malignant neoplasm of bronchus and lung; Z85.850 Personal history of malignant neoplasm of thyroid; Z85.89 Personal history of malignant neoplasm of other organs and systems; Z90.2 Acquired absence of lung [part of]; Z77.22 Contact with and (suspected) exposure to environmental tobacco smoke (acute) (chronic); Z79.82 Long term (current) use of aspirin; Z79.02 Long term (current) use of antithrombotics/antiplatelets
CPT/HCPCS: 72100; 73502; 99283

== ENCOUNTER → 2022-09-19 13:42 | Outpatient (BNVA) | payer MEDICARE, MEDICAID, SELFPAY | PROVIDERS: PCP Nurse Practitioner Family; Visit Provider Internal Medicine Cardiovascular Disease | DX: R07.89 Other chest pain (principal); E78.5 Hyperlipidemia, unspecified; I71.20 Thoracic aortic aneurysm, without rupture, unspecified; I10 Essential (primary) hypertension; R06.02 Shortness of breath; Z79.82 Long term (current) use of aspirin | CPT/HCPCS: 99214 ==

== ENCOUNTER → 2023-01-16 13:05 | Outpatient (BNVA) | payer MEDICARE, MEDICAID, SELFPAY | PROVIDERS: PCP Nurse Practitioner Family; Visit Provider Internal Medicine Pulmonary Disease | DX: R06.02 Shortness of breath (principal); Z85.818 Personal history of malignant neoplasm of other sites of lip, oral cavity, and pharynx; Z85.118 Personal history of other malignant neoplasm of bronchus and lung; Z77.22 Contact with and (suspected) exposure to environmental tobacco smoke (acute) (chronic); Z90.2 Acquired absence of lung [part of]; M05.9 Rheumatoid arthritis with rheumatoid factor, unspecified | CPT/HCPCS: 99214 ==

== ENCOUNTER 2023-03-31 16:22 | Emergency (ER) | payer MEDICARE, MEDICAID, SELFPAY ==
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
[2023-03-31 16:34] VITALS: BP 131/79; PULSE 90; RESP 18; TEMP 37.1; O2SAT 91
== END 2023-03-31 18:23 | disposition home or self-care (01) ==
PROVIDERS: Emergency Provider Family Medicine; PCP Nurse Practitioner Family
DX: M54.2 Cervicalgia (principal); Z79.02 Long term (current) use of antithrombotics/antiplatelets; Z79.82 Long term (current) use of aspirin; Z77.22 Contact with and (suspected) exposure to environmental tobacco smoke (acute) (chronic); I10 Essential (primary) hypertension; E78.5 Hyperlipidemia, unspecified; Z85.118 Personal history of other malignant neoplasm of bronchus and lung; Z85.89 Personal history of malignant neoplasm of other organs and systems; Z85.850 Personal history of malignant neoplasm of thyroid
CPT/HCPCS: 72040; 72072; 72100; 99284

== ENCOUNTER → 2023-04-03 13:48 | Outpatient (BNVA) | payer MEDICARE, MEDICAID, SELFPAY | PROVIDERS: PCP Nurse Practitioner Family; Visit Provider Internal Medicine Cardiovascular Disease | DX: R07.89 Other chest pain (principal); E78.5 Hyperlipidemia, unspecified; I10 Essential (primary) hypertension; R06.02 Shortness of breath; I71.20 Thoracic aortic aneurysm, without rupture, unspecified | CPT/HCPCS: 99214 ==

== ENCOUNTER 2023-07-29 16:05 | Emergency (ER) | payer MEDICARE, MEDICAID, SELFPAY ==
[2023-07-29 16:14] VITALS: BP 121/74; PULSE 84; RESP 17; TEMP 36.6; O2SAT 93; BMI 25.4
--- NOTE | 2023-07-29 16:42 | XRR_ITS ---
PROCEDURE INFORMATION: Exam: XR Left Wrist Exam date and time: 07/29/2023 5:24 PM Age: 72 years old Clinical indication: Injury or trauma; Fall; Swelling (edema); Wrist; Left; Additional info: Fall, pain TECHNIQUE: Imaging protocol: Radiologic exam of the left wrist. Views: 1 or 2 views. COMPARISON: CR (UP EX, ) 02/23/2021 11:41 PM FINDINGS: Bones/joints: No fracture or dislocation. Degenerative changes. Soft tissues: No acute findings. XR/XR wrist LT w scaphoid [id number] IMPRESSION: No acute findings.
--- NOTE | 2023-07-29 20:29 | W.ED.EXTPRO ---
Documented by User: RYLEY Santillan 07/29/23 20:34 HPI - Extremity Problem General: Chief complaint: Extremity Injury, Upper Stated complaint: fall, left hand pain Time Seen by Provider: 07/29/23 19:02 Source: patient Mode of arrival: ambulatory Limitations: no limitations History of Present Illness: Patient is a 72-year-old female presents to the emergency department complaining of left wrist pain status post fall last night. Patient states she was trying to avoid hitting some frames, when she lost balance and fell. She states she caught herself with her left hand but reports pain and swelling occurring soon after. Patient reports past surgical history of carpal tunnel repair to that same hand. Patient has not take anything for symptoms. Patient's pain primarily located at her left thumb. She denies any numbness, weakness, bruising, or any other symptoms. Patient denies any other injuries. Associated symptoms: Deny chest pain, fever(s) or rash Review of Systems General: Reports: 10 or more systems reviewed and unremarkable except in HPI and below Const: Denies: fever(s), chills or fatigue Eyes: Denies: change in vision ENMT: Denies: throat pain, ear or mastoid pain or nasal discharge Card: Denies: chest pain, palpitations, swelling of feet/ankles or lightheadedness Resp: Denies: dyspnea, productive cough or wheezing GI: Denies: abdominal pain, nausea, vomiting, diarrhea or constipation : Denies: flank pain, difficulty voiding, dysuria or urinary frequency Musc: Reports: extremity pain (Left hand) and extremity swelling (Left hand); Denies: neck pain, back pain or joint pain Skin/Breast: Denies: rash Neuro: Denies: headache(s), numbness in extremities or weakness in extremities PFSH ED PFSH: Medical History Chronic steroid use Immunization counseling High risk medication use 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 Thoracic aortic aneurysm (TAA) Dyslipidemia (high LDL; low HDL) Benign essential HTN SOB (shortness of breath) Atypical chest pain H/O: lung cancer Hypertension Hyperlipidemia 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 History of thyroid cancer Urgency of urination Urgency incontinence Surgical History H/O total thyroidectomy also had a thyroid biopsy 09/14/2015 H/O: hysterectomy S/P appendectomy 1979 H/O cardiac catheterization 09/2007 History of lobectomy of lung right lower lung History of bladder surgery History of eye surgery Family History Mother Colon cancer Hyperlipidemia Hypertension Stroke Heart disease CAD (coronary artery disease) Cancer Family/Other Breast cancer aunt maternal Cancer Family/Other Colon cancer uncle, maternal Stroke uncle maternal Brother Hypertension Brother Hyperlipidemia Grandmother Stroke maternal Other Suicide Denies family history of Clotting disorder Chronic kidney disease (CKD) Anesthesia complication Bleeding disorder Lung disease Social History Smoking and tobacco/nicotine status: never used tobacco/nicotine Second hand smoke exposure: Yes Alcohol intake: never Substance/Drug Use: never Lives independently: Yes Household members: family Marital status: / Current occupational status: disabled Pets and animals: Yes Do you think of yourself as: Straight/Heterosexual Current gender identity: Female Physical Exam Const: COMMON NORMALS: no acute distress, patient oriented x3 and no limitations GENERAL APPEARANCE: cooperative, comfortable and well developed ORIENTATION/CONSCIOUSNESS: Yes awake, Yes oriented to person, Yes oriented to place and Yes oriented to time HENMT: COMMON NORMALS: normocephalic, atraumatic and hearing grossly normal bilaterally HEAD & SCALP: normocephalic and atraumatic Neck/C-Spine: COMMON NORMALS: full ROM and supple Resp: COMMON NORMALS: normal respiratory effort, No retractions and No use of accessory muscles Extremity: LEFT UPPER EXTREMITY: Yes hand & digits Left hand and digits: Yes inspection (Mild diffuse swelling noted to the dorsal aspect), Yes palpation (Reproducible tenderness palpation over the left anatomical snuffbox), Yes ROM (Limited in all villan[place] due to pain) and Yes neurovascular exam (Intact) Neuro: COMMON NORMALS: patient oriented x3, moves all extremities, no focal motor deficits and no sensory deficits noted SENSORIUM/ORIENTATION: Yes oriented to person, Yes oriented to place and Yes oriented to time Psych: COMMON NORMALS: mental status grossly normal and Normal thought process present THOUGHT PROCESS: Normal thought process present Skin: COMMON NORMALS: no rashes or lesions noted GENERAL SKIN EXAM: no rashes or lesions noted Course Vital Signs: Vital signs: Vital Signs Temperature 98 F 07/29/23 16:14 Pulse Rate 84 07/29/23 16:14 Respiratory Rate 17 07/29/23 16:14 Blood Pressure 121/74 07/29/23 16:14 Pulse Oximetry 93 07/29/23 16:14 Oxygen Delivery Me thod Room Air 07/29/23 16:14 MDM - Extremity (Nontraumatic) Medical Decision Making This patient was seen and evaluated in the emergency department today for left wrist pain status post fall that occurred last night. Patient has history of carpal tunnel surgery to the same wrist. She denies any other injuries in the fall. Vitals normal. Examination significant for diffuse left hand swelling and tenderness over the left anatomical snuffbox, concerning for scaphoid injury. X-ray of the left wrist failed to demonstrate any signs of acute fracture or dislocations. Patient will prophylactically be placed in a thumb spica and follow-up for repeat imaging, to rule out scaphoid fracture/avascular necrosis. Patient also instructed to use ice as needed at her relief as well as to take ibuprofen. Patient agrees with this plan and consult for Ortho was placed. All other questions and concerns addressed at this time. Patient discharged home. Lab Data Radiology Impressions Wrist X-Ray 07/29/23 16:42 IMPRESSION: No acute findings. All radiology interpretation(s) finalized by discharge Discharge Plan Discharge Patient Disposition: Home Clinical Impression: Sprain of hand, left Qualifiers: Encounter type: initial encounter Qualified Code(s): S63.92XA - Sprain of unspecified part of left wrist and hand, initial encounter Condition: Stable Prescriptions: No Action aspirin [Adult Low Dose Aspirin] 81 mg tablet,delayed release (DR/EC) 81 mg PO DAILY buspirone 5 mg tablet 5 mg PO TID clopidogrel 75 mg tablet 75 mg PO DAILY diphenhydramine HCl 50 mg capsule 50 mg PO DAILY duloxetine 60 mg capsule,delayed release(DR/EC) 60 mg PO BID furosemide 20 mg tablet 20 mg PO DAILY levothyroxine 75 mcg capsule 75 mcg PO DAILY losartan 100 mg tablet 100 mg PO DAILY quetiapine 300 mg tablet 300 mg PO DAILY quetiapine 50 mg tablet 50 mg PO DAILY vitamin B complex [B Complex-Vitamin B12] Tablet 1 tab PO DAILY oxybutynin chloride 15 mg tablet extended release 24hr 15 mg PO DAILY Qty: 30 12RF hydroxyzine pamoate 25 mg capsule 25 mg PO TID PRN (Reason: itching) diclofenac sodium 75 mg tablet,delayed release (DR/EC) 75 mg PO BID PRN (Reason: pain) gabapentin 100 mg capsule 100 mg PO TID albuterol sulfate 90 mcg/actuation aerosol powdr breath activated 1 inh inhalation QID PRN (Reason: shortness of breath or wheezing) Qty: 1 3RF pantoprazole 40 mg tablet,delayed release (DR/EC) 40 mg PO DAILY Qty: 30 3RF amlodipine 10 mg tablet 10 mg PO DAILY 90 Days Qty: 90 3RF fluticasone propion-salmeterol [Advair Diskus] 250-50 mcg/dose blister with device 1 inh inhalation BID Qty: 60 6RF biotin 5 mg tablet 5 mg PO DAILY psyllium Packet 1 packet PO TID Rx Instructions: mix into at least 8 oz of water or juice before administering potassium chloride [Klor-Con M20] 20 mEq tablet,ER particles/crystals 20 meq PO DAILY Qty: 90 3RF Rx Instructions: For the first 3 days take 20 mEq twice a day, then 20 mg daily. methotrexate sodium 2.5 mg tablet See Rx Instructions .ROUTE .COMPLEX Qty: 30 3RF Dose Instruction: TAKE SIX TABLETS BY MOUTH ON MONDAY EACH WEEK Rx Instructions: TAKE SIX TABLETS BY MOUTH ON MONDAY EACH WEEK folic acid 1 mg tablet See Rx Instructions .ROUTE .COMPLEX Qty: 90 0RF Dose Instruction: Take 1 tablet by mouth once daily Rx Instructions: Take 1 tablet by mouth once daily atorvastatin 40 mg tablet 40 mg PO DAILY Qty: 30 0RF carvedilol 12.5 mg tablet 12.5 mg PO BID Qty: 180 2RF Rx Instructions: must administer with a meal/food Naprosyn 500 mg tablet 500 mg PO BID PRN (Reason: pain) Qty: 20 0RF tizanidine 4 mg tablet 2 mg PO Q6H PRN (Reason: muscle spasticity) Qty: 10 0RF Rx Instructions: do not exceed 3 doses per 24 hrs diclofenac sodium 75 mg tablet,delayed release (DR/EC) 75 mg PO Q12H PRN (Reason: pain) Qty: 20 0RF Discharge Orders: Discharge ED (Routine); Ordered 07/29/23 Ordered By: Gerald Foy Referrals: Cecilia Rubio FNP [Primary Care Provider] - Discharge Diet: Usual diet Discharge Activity: Increase activity as tolerated Patient Instructions: Hand Sprain (ED) Activity Restrictions/Additional Instructions: Keep splint on until you follow-up with Ortho for repeat x-ray. Follow-up with Ortho next week. Ice as needed. Ibuprofen as needed. Return if you develop any new or worsening symptoms. 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 Thoracic aortic aneurysm (TAA) Dyslipidemia (high LDL; low HDL) Benign essential HTN SOB (shortness of breath) Atypical chest pain H/O: lung cancer Hypertension Hyperlipidemia 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 History of thyroid cancer Urgency of urination Urgency incontinence Surgical History H/O total thyroidectomy also had a thyroid biopsy 09/14/2015 H/O: hysterectomy S/P appendectomy 1979 H/O cardiac catheterization 09/2007 History of lobectomy of lung right lower lung History of bladder surgery History of eye surgery Family History Mother Colon cancer Hyperlipidemia Hypertension Stroke Heart disease CAD (coronary artery disease) Cancer Family/Other Breast cancer aunt maternal Cancer Family/Other Colon cancer uncle, maternal Stroke uncle maternal Brother Hypertension Brother Hyperlipidemia Grandmother Stroke maternal Other Suicide Denies family history of Clotting disorder Chronic kidney disease (CKD) Anesthesia complication Bleeding disorder Lung disease Social History Smoking and tobacco/nicotine status: never used tobacco/nicotine Second hand smoke exposure: Yes Alcohol intake: never Substance/Drug Use: never Lives independently: Yes Household members: family Marital status: / Current occupational status: disabled Pets and animals: Yes Do you think of yourself as: Straight/Heterosexual Current gender identity: Female Course Vital Signs: Vital signs: Vital Signs Temperature 98 F 07/29/23 16:14 Pulse Rate 84 07/29/23 16:14 Respiratory Rate 17 07/29/23 16:14 Blood Pressure 121/74 07/29/23 16:14 Pulse Oximetry 93 07/29/23 16:14 Oxygen Delivery Me thod Room Air 07/29/23 16:14 MDM - Extremity (Nontraumatic) Medical Decision Making This patient was seen and evaluated in the emergency department today for left wrist pain status post fall that occurred last night. Patient has history of carpal tunnel surgery to the same wrist. She denies any other injuries in the fall. Vitals normal. Examination significant for diffuse left hand swelling and tenderness over the left anatomical snuffbox, concerning for scaphoid injury. X-ray of the left wrist failed to demonstrate any signs of acute fracture or dislocations. Patient will prophylactically be placed in a thumb spica and follow-up for repeat imaging, to rule out scaphoid fracture/avascular necrosis. Patient also instructed to use ice as needed at her relief as well as to take ibuprofen. Patient agrees with this plan and consult for Ortho was placed. All other questions and concerns addressed at this time. Patient discharged home. Chart reviewed and patient discussed with midlevel. Agree with assessment and plan. Lab Data Radiology Impressions Wrist X-Ray 07/29/23 16:42 IMPRESSION: No acute findings. Discharge Plan Discharge Patient Disposition: Home Clinical Impression: Sprain of hand, left Qualifiers: Encounter type: initial encounter Qualified Code(s): S63.92XA - Sprain of unspecified part of left wrist and hand, initial encounter Condition: Stable Prescriptions: No Action aspirin [Adult Low Dose Aspirin] 81 mg tablet,delayed release (DR/EC) 81 mg PO DAILY buspirone 5 mg tablet 5 mg PO TID clopidogrel 75 mg tablet 75 mg PO DAILY diphenhydramine HCl 50 mg capsule 50 mg PO DAILY duloxetine 60 mg capsule,delayed release(DR/EC) 60 mg PO BID furosemide 20 mg tablet 20 mg PO DAILY levothyroxine 75 mcg capsule 75 mcg PO DAILY losartan 100 mg tablet 100 mg PO DAILY quetiapine 300 mg tablet 300 mg PO DAILY quetiapine 50 mg tablet 50 mg PO DAILY vitamin B complex [B Complex-Vitamin B12] Tablet 1 tab PO DAILY oxybutynin chloride 15 mg tablet extended release 24hr 15 mg PO DAILY Qty: 30 12RF hydroxyzine pamoate 25 mg capsule 25 mg PO TID PRN (Reason: itching) diclofenac sodium 75 mg tablet,delayed release (DR/EC) 75 mg PO BID PRN (Reason: pain) gabapentin 100 mg capsule 100 mg PO TID albuterol sulfate 90 mcg/actuation aerosol powdr breath activated 1 inh inhalation QID PRN (Reason: shortness of breath or wheezing) Qty: 1 3RF pantoprazole 40 mg tablet,delayed release (DR/EC) 40 mg PO DAILY Qty: 30 3RF amlodipine 10 mg tablet 10 mg PO DAILY 90 Days Qty: 90 3RF fluticasone propion-salmeterol [Advair Diskus] 250-50 mcg/dose blister with device 1 inh inhalation BID Qty: 60 6RF biotin 5 mg tablet 5 mg PO DAILY psyllium Packet 1 packet PO TID Rx Instructions: mix into at least 8 oz of water or juice before administering potassium chloride [Klor-Con M20] 20 mEq tablet,ER particles/crystals 20 meq PO DAILY Qty: 90 3RF Rx Instructions: For the first 3 days take 20 mEq twice a day, then 20 mg daily. methotrexate sodium 2.5 mg tablet See Rx Instructions .ROUTE .COMPLEX Qty: 30 3RF Dose Instruction: TAKE SIX TABLETS BY MOUTH ON MONDAY EACH WEEK Rx Instructions: TAKE SIX TABLETS BY MOUTH ON MONDAY EACH WEEK folic acid 1 mg tablet See Rx Instructions .ROUTE .COMPLEX Qty: 90 0RF Dose Instruction: Take 1 tablet by mouth once daily Rx Instructions: Take 1 tablet by mouth once daily atorvastatin 40 mg tablet 40 mg PO DAILY Qty: 30 0RF carvedilol 12.5 mg tablet 12.5 mg PO BID Qty: 180 2RF Rx Instructions: must administer with a meal/food Naprosyn 500 mg tablet 500 mg PO BID PRN (Reason: pain) Qty: 20 0RF tizanidine 4 mg tablet 2 mg PO Q6H PRN (Reason: muscle spasticity) Qty: 10 0RF Rx Instructions: do not exceed 3 doses per 24 hrs diclofenac sodium 75 mg tablet,delayed release (DR/EC) 75 mg PO Q12H PRN (Reason: pain) Qty: 20 0RF Discharge Orders: Discharge ED (Routine); Ordered 07/29/23 Ordered By: Gerald Foy Referrals: Cecilia Rubio FNP [Primary Care Provider] - Discharge Diet: Usual diet Discharge Activity: Increase activity as tolerated Patient Instructions: Hand Sprain (ED) Activity Restrictions/Additional Instructions: Keep splint on until you follow-up with Ortho for repeat x-ray. Follow-up with Ortho next week. Ice as needed. Ibuprofen as needed. Return if you develop any new or worsening symptoms. Coding Level of Care Code ED Special Loan Officer for [facility] Peralta
--- NOTE | 2023-08-01 15:05 | PC.SOCIAL ---
Ortho F/u Referral to ortho clinic at this time. Clinic to contact patient with appt date/time.
== END 2023-07-29 20:21 | disposition home or self-care (01) ==
PROVIDERS: Emergency Provider Physician Assistant; PCP Nurse Practitioner Family
DX: S63.92XA Sprain of unspecified part of left wrist and hand, initial encounter (principal); Z79.02 Long term (current) use of antithrombotics/antiplatelets; Z79.82 Long term (current) use of aspirin; Z77.22 Contact with and (suspected) exposure to environmental tobacco smoke (acute) (chronic); Z85.89 Personal history of malignant neoplasm of other organs and systems; E78.5 Hyperlipidemia, unspecified; I10 Essential (primary) hypertension; Z85.118 Personal history of other malignant neoplasm of bronchus and lung; Z85.850 Personal history of malignant neoplasm of thyroid; W01.0XXA Fall on same level from slipping, tripping and stumbling without subsequent striking against object, initial encounter
CPT/HCPCS: 73110; 99283

== ENCOUNTER → 2024-03-14 13:48 | Outpatient (BNVA) | payer MEDICARE, MEDICAID, SELFPAY | PROVIDERS: PCP Nurse Practitioner Family; Visit Provider Internal Medicine Cardiovascular Disease | DX: R07.89 Other chest pain (principal); E78.5 Hyperlipidemia, unspecified; I10 Essential (primary) hypertension; R94.39 Abnormal result of other cardiovascular function study; I71.20 Thoracic aortic aneurysm, without rupture, unspecified; R06.02 Shortness of breath | CPT/HCPCS: 36415; 80048; 83880; 99214 ==

== ENCOUNTER → 2024-11-05 16:01 | Outpatient (BNVA) | payer MEDICARE, MEDICAID, SELFPAY | PROVIDERS: PCP Nurse Practitioner Family; Visit Provider Internal Medicine Cardiovascular Disease | DX: R07.9 Chest pain, unspecified (principal) | CPT/HCPCS: 93005; 99215 ==

== ENCOUNTER 2025-03-12 13:55 | Oncology outpatient (recurring) (ONCR) | payer MEDICARE, MEDICAID, SELFPAY ==
[2025-03-12 15:24] LABS: Hematocrit 37.8 % (36-47); Hemoglobin 12.30 g/dL (11.27-16.99); Mean Corpuscular HGB Conc 32.5 g/dL (30-55); Mean Corpuscular Hemoglobin 28.7 pg (27-33); Mean Corpuscular Volume 88.3 fl (85-98); Nucleated Red Blood Cells % 0 %; Platelet Count 221 10^3/cmm (157-399); Red Blood Count 4.28 10^6/uL (3.85-5.65); White Blood Count 8.57 10^3/uL (3.29-11.43)
[2025-03-12 15:45] LABS: Alanine Aminotransferase 13 U/L (0-33); Albumin Level 4.4 g/dL (3.5-5.2); Alkaline Phosphatase 122 U/L (35-105); Anion Gap 12.5 (5-19); Aspartate Amino Transferase 23 U/L (0-32); Blood Urea Nitrogen 20 mg/dL (8-23); Calcium 9.5 mg/dL (8.5-10.5); Carbon Dioxide 30 mmol/L (22-29); Chloride 104 mmol/L (98-107); Creatinine Clr Calc Pharmacy 45.0891; Ferritin 30 ng/mL (15-150); Globulin 3.4 g/dL (1.3-4.6); Glucose 139 mg/dL (65-115); Iron 120 ug/dL (37-145); Osmolality Calculated 301 mOsm/kg (285-295); Potassium 3.5 mmol/L (3.5-5.1); Sodium 143 mmol/L (136-145); Total Iron Binding Capacity 362 mcg/dl; Total Protein 7.8 g/dL (6.6-8.7); Unsaturated Iron Binding 242 ug/dL (112-347)
[2025-03-12 15:59] LABS: Vitamin B12 1206 pg/mL (232-1245)
== END 2025-03-28 23:59 | disposition home or self-care (01) ==
PROVIDERS: PCP Nurse Practitioner Family; Visit Provider Internal Medicine
DX: Z53.9 Procedure and treatment not carried out, unspecified reason; D50.9 Iron deficiency anemia, unspecified; Z79.899 Other long term (current) drug therapy
CPT/HCPCS: 36415; 80053; 82607; 82728; 82746; 83010; 83540; 83550; 83615; 85025; 85045; 85651; 99204

== ENCOUNTER 2025-03-21 16:40 | Emergency (ER) | payer MEDICARE, MEDICAID, SELFPAY ==
--- OUTSIDE RECORDS SUMMARY | 2025-03-21 16:49 | XMS_ITS | Data Portability ---
Author Organization ASHLEY Orozco [facility] Guru Friedman, [facility] Address [address] [address] Care Team Providers Care Clinical Lab Clerk Name Role Phone CECILIA EL Primary Care Provider VANESSA Garrido Referring Provider Assessment Encounter Date Assessment Date Assessment LastModified by Organization Details LastModified Time 02/28/2024 02/28/2024 Patient is here today for a check-up. She has multiple complaints. She reports she was never able to see rheumatology because they couldn't get a hold of her and when she tried to get an appt now they told her she needed a new referral. Will contact her with lab results. Not available 02/28/2024 18:53:52 06/26/2024 06/26/2024 Patient here today for a check-up. She has a lot of troubles with her right hip still. CCA form completed at today's visit. Not available 07/09/2024 17:55:18 01/01/2025 01/01/2025 Patient reports she has been having to use her oxygen more now at home during the day instead of just at night. She also feels like her memory is getting worse. Discussed with her Home Health coming out to help her but she declines. She reports Dr. Cerda ordered a stress test on her but she hasn't heard from them yet when it is. Not available 01/01/2025 13:51:02 01/23/2025 01/23/2025 Patient here today because she has been having pain in her eyes. She is legally blind but has been having a lot of pain when she strains to watch TV. I wonder if this is contributing to her headaches. Not available 01/23/2025 14:33:24 Plan of Treatment Reminders Order Date Submit Date Provider Last Modified By Organization Details Last Modified Time Details Appointments None recorded. Lab iron + TIBC + ferritin, serum 2024 025 [facility], [address] [facility] [address], [address] [place], [address], 06:23:09 CMP, serum or plasma 2024 025 [facility], [address] [facility], [facility], [place], [address], 14:37:26 lipid panel, blood 2024 025 [facility], [address] [facility], [facility], [place], [address], 14:37:26 CBC 2024 025 [facility], [address] [facility], [facility], [place], [address], 14:37:26 TSH, serum or plasma 2024 025 [email or web address] 9 [facility], [address] [facility], [facility], [place], [address], 5 10:21:56 HbA1c (hemoglobin A1c), blood 2023 024 [facility] ([facility]), [address] [place], [address], 4 16:17:09 TSH, serum or plasma 2023 024 [facility] ([facility]), [address] [place], [address], 4 16:15:43 noninvasive colorectal cancer DNA + occult blood screening, QL, stool 2023 024 [email or web address] 9 [facility], [address], [place], [address], 4 10:04:14 CMP, serum or plasma 2023 024 [facility], [address] [facility], [facility], [place], [address], 4 16:12:03 lipid panel, blood 2023 024 [facility], [address] [facility], [facility], [place], [address], 4 16:12:06 CBC 2023 024 [facility], [address] [facility], [facility], [place], [address], 4 15:46:18 Referral hematologis t referral 2024 025 [email or web address] 4 Humberto Gutierrez MD, [address] [place], [address], 5 11:00:32 ophthalmolo gist referral 2024 025 [email or web address] 4 Onel Maciel MD, [address] [place], [address], 5 11:00:[address] referral 2024 025 [email or web address] 4 [facility] Pulmonology - Dr Datar, [address] [address], [place], [address], 5 11:00:51 rheumatolog ist referral [email or web address] [place] [address] (Rheumatology ), [address], [address], [place], [address], 4 08:41:30 neurologist referral 2023 024 [email or web address] 2 [facility], [address] [place], [address], 4 12:27:48 Procedures None recorded. Surgeries None recorded. Imaging US, duplex, venous, lower extremity, unilateral 2024 025 [email or web address] 8 [facility], [address] [place], [address], 5 13:09:18 XR, hip, unilateral, 2 or 3 view 2023 024 [email or web address] 2 [facility] ([facility]), [address] [place], [address], 4 14:47:33 XR, chest, 2 view 2023 024 [email or web address] [facility] ([facility]), [address] [place], [address], 4 16:59:41 Medication Orders buspirone 10 mg tablet 2024 025 [facility], [address], [place], [address], 5 14:10:48 azithromyci n 250 mg tablet 2024 025 [facility], [address], [place], [address], 5 13:26:09 fluticasone propionate 50 mcg/actuati on nasal spray,suspe nsion 2024 025 [facility], [address], [place], [address], 16:12:08 buspirone 10 mg tablet 2024 025 [facility], [address], [place], [address], 13:46:31 Patient TargetsNo targets recorded. Patient Instructions Encounter Date Encounter Id Patient Instructions Last Modified By Organization Details Last Modified Time 02/28/2024 [id number] Call or return for questions or concerns. Not available 02/28/2024 14:33:46 06/26/2024 [id number] Call or return for questions or concerns. Not available 07/09/2024 18:02:37 01/01/2025 [id number] Call or return for questions or concerns. Not available 01/01/2025 14:36:45 01/23/2025 [id number] Call or return for questions or concerns. Not available 01/23/2025 14:30:22 Reason for Referral Neurologist Referral for Margaret ly headache Referring Physician: Cecilia [facility], Encounter Date: 02/28/2024 Machine Overhauler Referral for Seropositive rheumatoid arthritis Referring Physician: [facility], Encounter Date: 02/28/2024 Tile And Marble Installer Referral for D yspnea Referring Physician: Cecilia El [facility], Encounter Date: 01/01/2025 Strategic Sourcing Specialist Referral for Pain of bilateral eyes Referring Physician: Cecilia [facility], Encounter Date: 01/23/2025 Referring Physician: Cecilia meza [facility], Encounter Date: 01/23/2025 Results Created Date Observation Date Name Description Value Unit Range Abnormal Flag Note LastModifiedBy Organization Detail LastModifiedTime 02/28/20 24 02/28/2024 CBC WBC 5.7 x10 4.0-10 .5 Not Available [facility] [address] [facility] [address], [place], [address], 02/28/2024 15:46:18 02/28/2002/28/2024 CBC RBC 4.51 x10 3.50-5 .50 Not Available [facility] [address] [facility], [place], [address], 02/28/2024 15:46:18 02/28/2002/28/2024 CBC HGB 13.1 g/dL 12.0-1 6.0 Not Available [facility] [address] [facility], [place], [address], 02/28/2024 15:46:18 02/28/2002/28/2024 CBC HCT 38.8 % 37.0-4 7.0 Not Available [facility] [address] [facility] [address] [facility], [place], [address], 02/28/2024 15:46:18 02/28/20 24 02/28/2024 CBC MCV 86.1 fL 80.0-9 9.9 Not Available [facility] [address] [facility], [place], [address], 02/28/2024 15:46:18 02/28/20 24 02/28/2024 CBC MCH 29.1 pg 27.0-3 2.0 Not Available [facility] [address] [facility] [address], [place], [address], 02/28/2024 15:46:18 02/28/20 24 02/28/2024 CBC MCHC 33.9 g/dL 32.0-3 6.0 Not Available [facility] [address] [facility], [place], [address], 02/28/2024 15:46:18 02/28/20 24 02/28/2024 CBC RDW 15.1 % 11.5-1 4.5 high Not Available [facility] [address] [facility] [address], [place], [address], 02/28/2024 15:46:18 02/28/20 24 02/28/2024 CBC plt 234.3 x10 140.0- 451.0 Not Available [facility] [address] [facility] [address], [place], [address], 02/28/2024 15:46:18 02/28/20 24 02/28/2024 CBC lymphocytes % 36.8 % 20.0-5 0.0 Not Available [facility] [address] [facility] [address], [place], [address], 02/28/2024 15:46:18 02/28/20 24 02/28/2024 CBC granulcytes % 50.5 % 30.0-7 0.0 Not Available [facility] [address] [address], [place], [address], 02/28/2024 15:46:18 02/28/20 24 02/28/2024 CBC monocytes % 9.3 % 2.0-16 .0 Not Available [facility] [address] [facility], [place], [address], 02/28/2024 15:46:18 02/28/20 24 02/28/2024 CBC granulcytes# 2.9 x10 Not Almaz ilable [facility] [address] [address], [place], [address], 02/28/2024 15:46:18 02/28/20 24 02/28/2024 CBC lymphocytes # 2.1 x10 Not Available [facility] [address] [facility], [place], [address], 02/28/2024 15:46:18 02/28/20 24 02/28/2024 CBC monocytes # 0.5 x10 Not Avai lable [facility] [address] [facility], [place], [address], 02/28/2024 15:46:18 02/28/20 24 02/28/2024 CMP (FEMA LE) glucose 119.0 mg/dL 60.0-9 9.0 high Not Available [facility] [address] [facility], [place], [address], 02/28/2024 16:12:03 02/28/20 24 02/28/2024 CMP (FEMA LE) BUN (blood urea nitrogen) 16.0 mg/dL 10.0-2 6.0 Not Available [facility] [address] [facility], [place], [address], 02/28/2024 16:12:03 02/28/20 24 02/28/2024 CMP (FEMA LE) creatinine (serum) 0.8 mg/dL 0.4-1. 5 Not Available [facility] [address] [facility], [place], [address], 02/28/2024 16:12:03 02/28/20 24 02/28/2024 CMP (FEMA LE) BUN/creatini ne ratio 19.05 ratio Not Available [facility] [address] [facility], [place], [address], 02/28/2024 16:12:03 02/28/20 24 02/28/2024 CMP (FEMA LE) eGFR calculated 70.4 Not Available [facility] [address] [facility], [place], [address], 02/28/2024 16:12:03 02/28/20 24 02/28/2024 CMP (FEMA LE) total protein 7.6 g/dL 6.0-8. 5 Not Available [facility] [address] [facility], [place], [address], 02/28/2024 16:12:03 02/28/20 24 02/28/2024 CMP (FEMA LE) total bilirubin 0.4 mg/dL 0.2-1. 3 Not Available [facility] [address] [facility] [address] [facility], [place], [address], 02/28/2024 16:12:03 02/28/20 24 02/28/2024 CMP (FEMA LE) albumin 4.1 g/dL 3.5-5. 5 Not Available [facility] [address] [facility], [place], [address], 02/28/2024 16:12:03 02/28/20 24 02/28/2024 CMP (FEMA LE) globulin 3.5 calc Not Available [facility] [address] [facility], [place], [address], 02/28/2024 16:12:03 02/28/20 24 02/28/2024 CMP (FEMA LE) AST (SGOT) 32.0 U/L 0.0-46 .0 Not Available [facility] [address] [facility] [address] [facility], [place], [address], 02/28/2024 16:12:03 02/28/20 24 02/28/2024 CMP (FEMA LE) altv (SGPT) 17.0 U/L 13.0-6 9.0 normal Not Available [facility] [address] [facility] [address] [facility], [place], [address], 02/28/2024 16:12:03 02/28/20 24 02/28/2024 CMP (FEMA LE) A/G ratio 1.2 ratio Not Available [facility] [address] [facility], [place], [address], 02/28/2024 16:12:03 02/28/20 24 02/28/2024 CMP (FEMA LE) ALP phos 128.0 U/L 30.0-1 40.0 normal Not Available [facility] [address] [facility] [address], [place], [address], 02/28/2024 16:12:03 02/28/20 24 02/28/2024 CMP (FEMA LE) calcium 9.7 mg/dL 8.4-10 .5 Not Available [facility] [address] [facility], [place], [address], 02/28/2024 16:12:03 02/28/2002/28/2024 CMP (FEMA LE) sodium 145.0 mmol/ L 136.0- 145.0 Not Available [facility] [address] [facility], [place], [address], 02/28/2024 16:12:03 02/28/2002/28/2024 CMP (FEMA LE) potassium 3.1 mmol/ L 3.5-5. 1 low Not Available [facility] [address] [facility], [place], [address], 02/28/2024 16:12:03 02/28/20 24 02/28/2024 CMP (FEMA LE) chloride 109.0 mmol/ L 98.0-1 10.0 normal Not Available [facility] [address] [facility], [place], [address], 02/28/2024 16:12:03 02/28/2002/28/2024 CMP (FEMA LE) C02 35.0 mmol/ L 22.0-3 1.0 high Not Available [facility] [address] [facility], [place], [address], 02/28/2024 16:12:03 02/28/2002/28/2024 CMP (FEMA LE) anion gap 1.0 calc Not Available [facility] [address] [facility] [address], [place], [address], 02/28/2024 16:12:03 02/28/20 24 02/28/2024 CMP (FEMA LE) osmolality 301.3 calc Not Available [facility] [address] [facility] [address], [place], [address], 02/28/2024 16:12:03 02/28/20 24 02/28/2024 LIPID PROFI LE (FEMA LE) cholesterol 183.0 mg/dL 0.0-20 0.0 Not Available [facility] [address] [facility] [address], [place], [address], 02/28/2024 16:12:06 02/28/20 24 02/28/2024 LIPID PROFI LE (FEMA LE) trig 190.0 mg/dL 0.0-15 0.0 high Not Available [facility] [address] [facility] [address], [place], [address], 02/28/2024 16:12:06 02/28/20 24 02/28/2024 LIPID PROFI LE (FEMA LE) HDL - direct 56.0 mg/dL >40.0 Not Available [facility] [address] [facility], [place], [address], 02/28/2024 16:12:06 02/28/20 24 02/28/2024 LIPID PROFI LE (FEMA LE) VLDL - direct 38.0 mg/dL Not Available [facility] [address] [facility] [address], [place], [address], 02/28/2024 16:12:06 02/28/20 24 02/28/2024 LIPID PROFI LE (FEMA LE) LDL - direct 89.0 mg/dL 0.0-13 0.0 Not Available [facility] [address] [facility], [place], [address], 02/28/2024 16:12:06 02/28/20 24 02/28/2024 HbA1c (hemo globi n A1c), blood HbA1c 6.2 Not Available [facility] ([facility]) [address] [place], [address], 02/28/2024 13:55:16 02/28/20 24 02/28/2024 TSH, serum or plasm a TSH 1.93 uIU/m L 0.49-3 .82 Not Available [facility] ([facility]) [address] [place], [address], 02/28/2024 13:57:18 03/27/20 24 03/27/2024 COLOG UARD cologuard result reportable NEGATI VE negati ve normal NEGAT FRANCIS TEST RESUL T. A negat francis Colog uard resul t indic ates a low likel ihood that a color ectal cance r (CRC) or advan cortes adeno ma (carmen omato us polyp s with more advan cortes pre-m align ant featu res) is prese nt. The chanc e that a perso n with a negat francis Colog uard test has a color ectal cance r is less than 1 in 1500 (nega tive predi ctive value >99.9 %) or has an advan cortes adeno ma is less than 5.3% (nega tive predi ctive value 94.7% ). These data are based on a prosp ectiv e cross -sect ional study of 10,00 0 indiv idual s at reading ge risk for color ectal cance r who were scree raudel with both Colog uard and colon oscop y. (Jus Mcqueen et al, N Engl J Med 2014; 370(1 4):12 86-12 97) The brandon l value (refe rence range ) for this assay is negat francis. COLOG UARD RE-SC REENI NG RECOM MENDA TION: Perio dic color ectal cance r scree barry is an impor tant part of preve ntive healt hcare for asymp tomat ic indiv idual s at [facility] avera risk for color ectal cance r. Follo wing a negat francis Colog uard resul t, the Ameri can Cance r Socie ty and U.S. Multi -Soci ety Task Force scree barry guide lines recom mend a Colog uard re-sc joanie ro inter joe of 3 years . Refer ences : Ameri can Cance r Socie ty Guide line for Color ectal Cance r Scree barry: https ://ww w.can cer.o rg/ca ncer/ colon -rect al-ca ncer/ detec tion- diagn osis- stagi ng/ac s-rec ommen datio ns.ht ml.; Bruno MATHIS, Marshall trujillo CR, Carlo OrozcoK, Color ectal Cance r Scree barry: Recom menda tions for Physi cians and Patie nts from the U.S. Multi -Soci ety Task Force on Color ectal Cance r Scree barry , Am J Maria Elena oente rolog y 2017; 112:1 016-1 030. TEST DESCR IPTIO N: [place] site algor ithmi c jr sis of stool DNA-b arnulfo beal with hemog lobin immun oassa y. Quant itati ve value s of indiv idual bioma rkers are not repor table and are not assoc iated with indiv idual bioma rker resul t refer ence range s. Colog uard is inten ded for color ectal cance r scree barry of adult s of eithe r sex, 45 years or older , who are at [facility] for color ectal cance r (CRC) . Colog uard has been appro rashad for use by the U.S. FDA. The perfo rmanc e of Colog uard was estab lishe d in a cross secti onal study of [facility] adult s aged 50-84 . Colog uard perfo rmanc e in patie nts ages 45 to 49 years was estim ated by nela-светлана lovelace jr sis of near- age group s. Colon oscop ies perfo rmed for a posit francis resul t may find as the most clini argenis signi anca t lesio n: color ectal cance r [4.0% ], advan cortes adeno ma (incl uding sessi le bucky kinjal polyp s great er than or equal to 1cm diame ter) [20%] or non- advan cortes adeno ma [31%] ; or no color ectal neopl mago [45%] . These estim ates are deriv ed from a prosp ectiv e cross -sect ional scree barry study of 0 indiv idual s at reading ge risk for color ectal cance r who were scree raudel with both Colog uard and colon oscop y. (Jus Mcqueen et al, N Engl J Med 2014; 370(1 4):12 86-12 97.) Colog uard may produ ce a false negat francis or false posit francis resul t (no color ectal cance r or preca ncero us polyp prese nt at colon oscop y follo w up). A negat francis Colog uard test resul t does not guara ntee the absen ce of CRC or advan cortes adeno ma (pre- cance r). The curre nt Colog uard scree barry inter joe is every 3 years . (Amer ican Cance r Socie ty and U.S. Multi -Soci ety Task Force ). Colog uard perfo rmanc e data in a 0 patie nt pivot al study using colon oscop y as the refer ence metho d can be acces sed [facility] locat ion: www.e xactl abs.c om/re sults . Addit ional descr iptio n of the Colog uard test proce ss, warni ngs and preca ution s can be found at www.c demian romero.c om. Not Available [facility] [address], [place], [address], 04/05/2024 02:31:47 01/02/20 25 01/01/2025 CBC WBC 6.8 x10 4.0-10 .5 Not Available [facility] [address] [facility], [place], [address], 01/01/2025 13:51:26 01/02/20 25 01/01/2025 CBC RBC 3.64 x10 3.50-5 .50 Not Available [facility] [address] [facility], [place], [address], 01/01/2025 13:51:26 01/02/20 25 01/01/2025 CBC HGB 10.9 g/dL 12.0-1 6.0 low Not Available [facility] [address] [facility], [place], [address], 01/01/2025 13:51:26 01/02/20 25 01/01/2025 CBC HCT 33.4 % 37.0-4 7.0 low Not Available [facility] [address] [facility], [place], [address], 01/01/2025 13:51:26 01/02/20 25 01/01/2025 CBC MCV 91.7 fL 80.0-9 9.9 Not Available [facility] [address] [facility], [place], [address], 01/01/2025 13:51:26 01/02/2001/01/2025 CBC MCH 29.9 pg 27.0-3 2.0 Not Available [facility] [address] [facility], [place], [address], 01/01/2025 13:51:26 01/02/20 25 01/01/2025 CBC MCHC 32.5 g/dL 32.0-3 6.0 Not Available [facility] [address] [facility], [place], [address], 01/01/2025 13:51:26 01/02/20 25 01/01/2025 CBC RDW 14.2 % 11.5-1 4.5 Not Available [facility] [address] [facility], [place], [address], 01/01/2025 13:51:26 01/02/20 25 01/01/2025 CBC plt 199.8 x10 140.0- 451.0 Not Available [facility] [address] [facility], [place], [address], 01/01/2025 13:51:26 01/02/20 25 01/01/2025 CBC lymphocytes % 27.0 % 20.0-5 0.0 Not Available [facility] [address] [facility], [place], [address], 01/01/2025 13:51:26 01/02/20 25 01/01/2025 CBC granulcytes % 58.5 % 30.0-7 0.0 Not Available [facility] [address] [place] [facility], [place], [address], 01/01/2025 13:51:26 01/02/20 25 01/01/2025 CBC monocytes % 9.7 % 2.0-16 .0 Not Available [facility] [address] [place] [address] [facility], [place], [address], 01/01/2025 13:51:26 01/02/20 25 01/01/2025 CBC granulcytes# 4.0 x10 Not Almaz ilable [facility] [address] [place] [address] [facility], [place], [address], 01/01/2025 13:51:26 01/02/20 25 01/01/2025 CBC lymphocytes # 1.8 x10 Not Available [facility] [address] [place] [address] [facility], [place], [address], 01/01/2025 13:51:26 01/02/20 25 01/01/2025 CBC monocytes # 0.7 x10 Not Avai lable [facility] [address] [facility], [place], [address], 01/01/2025 13:51:26 01/02/20 25 01/01/2025 CMP (FEMA LE) glucose 136.0 mg/dL 60.0-9 9.0 high Not Available [facility] [address] [facility], [place], [address], 01/01/2025 14:16:25 01/02/20 25 01/01/2025 CMP (FEMA LE) BUN (blood urea nitrogen) 13.0 mg/dL 10.0-2 6.0 Not Available [facility] [address] [address], [place], [address], 01/01/2025 14:16:25 01/02/20 25 01/01/2025 CMP (FEMA LE) creatinine (serum) 0.8 mg/dL 0.4-1. 5 Not Available [facility] [address] [address], [place], [address], 01/01/2025 14:16:25 01/02/20 25 01/01/2025 CMP (FEMA LE) BUN/creatini ne ratio 16.25 ratio Not Available [address] [address], [place], [address], 01/01/2025 14:16:25 01/02/20 25 01/01/2025 CMP (FEMA LE) eGFR calculated 74.3 Not Available [facility] [address] [address], [place], [address], 01/01/2025 14:16:25 01/02/20 25 01/01/2025 CMP (FEMA LE) total protein 7.4 g/dL 6.0-8. 5 Not Available [facility] [address] [facility], [place], [address], 01/01/2025 14:16:25 01/02/20 25 01/01/2025 CMP (FEMA LE) total bilirubin 0.6 mg/dL 0.2-1. 3 Not Available [facility] [address] [facility], [place], [address], 01/01/2025 14:16:25 01/02/20 25 01/01/2025 CMP (FEMA LE) albumin 4.1 g/dL 3.5-5. 5 Not Available [facility] [facility] [address] [facility] [address], [place], [address], 01/01/2025 14:16:25 01/02/20 25 01/01/2025 CMP (FEMA LE) globulin 3.3 calc Not Available [facility] [address] [facility] [address], [place], [address], 01/01/2025 14:16:25 01/02/20 25 01/01/2025 CMP (FEMA LE) AST (SGOT) 33.0 U/L 0.0-46 .0 Not Available [facility] [place] [facility] [address] [facility] [address], [place], [address], 01/01/2025 14:16:25 01/02/20 25 01/01/2025 CMP (FEMA LE) altv (SGPT) 16.0 U/L 13.0-6 9.0 normal Not Available [facility] [address] [facility], [place], [address], 01/01/2025 14:16:25 01/02/20 25 01/01/2025 CMP (FEMA LE) A/G ratio 1.2 ratio Not Available [facility] [facility], [place], [address], 01/01/2025 14:16:25 01/02/20 25 01/01/2025 CMP (FEMA LE) ALP phos 118.0 U/L 30.0-1 40.0 normal Not Available [facility] [address] [facility], [place], [address], 01/01/2025 14:16:25 01/02/2001/01/2025 CMP (FEMA LE) calcium 9.2 mg/dL 8.4-10 .5 Not Available [facility] [address] [facility], [place], [address], 01/01/2025 14:16:25 01/02/2001/01/2025 CMP (FEMA LE) sodium 143.0 mmol/ L 136.0- 145.0 Not Available [facility] [address] [facility] 1, [place], [address], 01/01/2025 14:16:25 01/02/2001/01/2025 CMP (FEMA LE) potassium 3.5 mmol/ L 3.5-5. 1 Not Available [facility] [address] [facility] 1, [place], [address], 01/01/2025 14:16:25 01/02/2001/01/2025 CMP (FEMA LE) chloride 102.0 mmol/ L 98.0-1 10.0 normal Not Available [facility] [address] [facility] 1, [place], [address], 01/01/2025 14:16:25 01/02/2001/01/2025 CMP (FEMA LE) C02 36.0 mmol/ L 22.0-3 1.0 high Not Available [facility] [address] [facility] 1, [place], [address], 01/01/2025 14:16:25 01/02/20 25 01/01/2025 CMP (FEMA LE) anion gap 5.0 calc Not Available [facility] [address] [facility], [place], [address], 01/01/2025 14:16:25 01/02/20 25 01/01/2025 CMP (FEMA LE) osmolality 297.1 calc Not Available [facility] [address] [facility] 1, [place], [address], 01/01/2025 14:16:25 01/02/20 25 01/01/2025 LIPID PROFI LE (FEMA LE) cholesterol 137.0 mg/dL 0.0-20 0.0 Not Available [facility] [address] [facility] 1, [place], [address], 01/01/2025 14:16:28 01/02/20 25 01/01/2025 LIPID PROFI LE (FEMA LE) trig 102.0 mg/dL 0.0-15 0.0 Not Available [facility] [address] [facility] 1, [place], [address], 01/01/2025 14:16:28 01/02/20 25 01/01/2025 LIPID PROFI LE (FEMA LE) HDL - direct 48.0 mg/dL >40.0 Not Available [facility] [facility] 1, [place], [address], 01/01/2025 14:16:28 01/02/20 25 01/01/2025 LIPID PROFI LE (FEMA LE) VLDL - direct 20.4 mg/dL Not Available [facility] [address] [facility] 1, [place], [address], 01/01/2025 14:16:28 01/02/20 25 01/01/2025 LIPID PROFI LE (FEMA LE) LDL - direct 68.6 mg/dL 0.0-13 0.0 Not Available [facility] [address] [facility] 1, [place], [address], 01/01/2025 14:16:28 01/02/20 25 01/01/2025 TSH TSH 4.30 uIU/m L 0.49-3 .82 high Not Available [facility] [address] [facility] 1, [place], [address], 01/01/2025 15:18:59 01/24/20 25 01/24/2025 IRON, TIBC AND RAJWINDER TIN PANEL iron, total 67 mcg/d L 45-160 normal Not Available [address] [place], [address], 01/24/2025 06:23:09 01/24/20 25 01/24/2025 IRON, TIBC AND RAJWINDER TIN PANEL iron binding capacity 391 mcg/d L_(ca lc) 250-45 0 normal Not Available [address], [address], 01/24/2025 06:23:09 01/24/20 25 01/24/2025 IRON, TIBC AND RAJWINDER TIN PANEL % saturation 17 %_(ca lc) 16-45 normal Not Available [address] [place], [address], 01/24/2025 06:23:09 01/24/20 25 01/24/2025 IRON, TIBC AND RAJWINDER TIN PANEL ferritin 15 NG/mL 16-288 low Not Available [address], [address], 01/24/2025 06:23:09 02/28/20 24 06/26/2024 XR, chest , 2 view No observ ation record ed. [facility] ([facility]) [address] [place], [address], 06/26/2024 13:40:12 03/04/20 24 02/28/2024 XR, chest , 2 view No observ ation record ed. [email or web address] [address] [place], [address], 06/26/2024 13:40:12 03/04/20 24 02/28/2024 XR, hip, unila teral , 2 or 3 view No observ ation record ed. [email or web address] [address] [place], [address], 06/26/2024 13:40:12 01/04/20 25 01/01/2025 XR, chest , 2 view No observ ation record ed. [facility] ([facility]) [address] [place], [address], 01/23/2025 14:22:07 Result Notes None recorded. Problems Name Problem SNOMED Code Status Onset Date Resolution Date Notes Provider Name and Address Organization Details Recorded Time Family history of cancer of colon 534300461 Active 2022 FAMILY HISTORY OF COLON CANCER IN MOTHER ASHA GONCALVES jocelin [facility] 4 13:55:55 History of malignant neoplasm of head and/or neck 393845349 Active 2022 HISTORY OF SALIVARY GLAND CANCER ASHAYAZAN GONCALVES jocelin [facility] 4 13:55:58 Blindness - both eyes 792683178 Active 2022 BLINDNESS OF BOTH EYES; Right Eye complete blindness /Glass eye age 4/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 Hypertension IM/FMReported by PatientHPIFor severity, patient reportsstage 2 (>140/>90 mmhg). For quality, patient reportshere for check-up. For duration, patient reportshtn present for ___ years. For self care, patient reportsnon-smoker. Eye PainReported by PatientHPIFor quality, patient reportsdull. For location, patient reportsbilateral. For duration, patient reportsintermittent. RUBINA OJEDA [address] [place], [address], [facility] 01/23/2025 14:34:30 OBGyn Episode No OBEpisode recorded.
--- OUTSIDE RECORDS SUMMARY | 2025-03-21 16:49 | XMS_ITS | Patient Health Record ---
Author Organization [facility] Address [address] [place] [address] Support Name Relationship Address Phone Kellen Chauhan Guarantor Unknown [phone] Reason For Referral No Information Plan Of Treatment No Information Insurance Providers Payer Name Payer Address Payer Phone Subscriber Number Group Number Insured Name Patient Relationship to Insured Coverage Start Date Coverage End Date [employer] [place] [address] [place] [address] [id number] Kellen Chauhan Self - patient is the insured [employer] [address] [place] [address] [phone] [id number] Kellen Chauhan Self - patient is the insured
--- OUTSIDE RECORDS SUMMARY | 2025-03-21 16:49 | XMS_ITS | Clinical Summary ---
Author Organization [facility] Address [address] [place] [address] Care Team Providers Care Transformation Lead Name Role Phone Gerald Nguyen MD Primary Care Provider [phone] Allergies Active Allergy Reactions Criticality Noted Date Comments Amlodipine Headache Low 05/08/2014 Medications dicyclomine (BENTYL) 10 mg capsuleIndicatio ns:Irritable bowel syndrome without diarrhea TAKE ONE CAPSULE BY MOUTH ONCE DAILY NEEDED FOR NAUSEA OR BLOATING. 30 Capsule 5 5 Active QUEtiapine (SEROQUEL) 300 mg tablet Take 350 mg by mouth daily at bedtime. Active KLOR-CON M20 20 mEq Extended Release tablet TAKE ONE TABLET BY MOUTH ONCE DAILY 30 Tablet 2 6 Active busPIRone (BUSPAR) 5 mg tablet Take 1 Tablet (5 mg) by mouth daily. 30 Tablet 1 6 Active DULoxetine (CYMBALTA) 60 mg Capsule, Delayed Release(E.C.) Take 2 Capsule (120 mg) by mouth daily. 30 Capsule 1 6 Active QUEtiapine (SEROquel) 50 mg tablet Take 50 mg by mouth daily. 6 Active escitalopram oxalate (LEXAPRO) 10 mg tablet Take 10 mg by mouth daily. 6 Active aspirin (ASPIRIN LOW DOSE) 81 mg Tablet, Delayed Release (E.C.) Take 1 Tablet (81 mg) by mouth daily. 30 Tablet 1 6 Active Miscellaneous Medical SupplyIndication s:Chronic obstructive pulmonary disease, unspecified COPD type (CMS/HCC) 1 nebulizer dx. COPD J44.9. 1 Each 7 Active amLODIPine (NORVASC) 5 mg tablet TAKE ONE TABLET BY MOUTH ONCE DAILY 30 Tablet 1 7 Active oxygen home delivery Home Oxygen Concentrator yes at 0 L/M Rest, 0 L/M Activity, 2 L/M Sleep, Delivery Device: Nasal Cannula Portability: no May evaluate for device best for patient needs(E system,home fill, conserving device) Maintain Sats: > OR = 90%, Length of Need: 99 months. 1 Each 7 Active tiZANidine (ZANAFLEX) 4 mg TabletIndication s:Spasm of back muscles TAKE ONE-HALF TO ONE TABLET BY MOUTH AT NIGHT NEEDED FOR SPASM 20 Tablet 1 7 Active albuterol (PROVENTIL,МАРИЯ JESSICA) 2.5 mg /3 mL (0.083 %) Solution for Nebulization Take 3 mL (2.5 mg) by inhalation every 6 hours as needed for Shortness of Breath. 3 mL 2 7 Active losartan (COZAAR) 100 mg tablet TAKE ONE TABLET BY MOUTH ONCE DAILY 90 Tablet 3 8 Active simvastatin (ZOCOR) 40 mg tablet TAKE 1 TABLET BY MOUTH ONCE DAILY 90 Tablet 1 8 Active clopidogrel (PLAVIX) 75 mg TabletIndication s:Right sided weakness,H/O: stroke with residual effects TAKE 1 TABLET BY MOUTH ONCE DAILY 90 Tablet 1 9 Active furosemide (LASIX) 20 mg tablet TAKE 1 TABLET BY MOUTH EVERY OTHER DAY 45 Tablet 3 9 Active carvedilol (COREG) 12.5 mg tablet Take 1 Tablet (12.5 mg) by mouth 2 times daily. 180 Tablet 3 9 Active levothyroxine 75 mcg tablet Take 1 Tablet (75 mcg) by mouth daily early morning babysitter. 30 Tablet 1 9 Active raNITIdine (ZANTAC) 300 mg tabletIndication s:GERD (gastroesophagea l reflux disease) Take 1 Tablet (300 mg) by mouth daily at bedtime. 30 Tablet 11 9 Active terazosin (HYTRIN) 2 mg capsule TAKE 1 CAPSULE BY MOUTH ONCE DAILY AT BEDTIME 30 Capsule 0 Active hydrOXYzine pamoate (VISTARIL) 25 mg capsule TAKE 1 CAPSULE BY MOUTH THREE TIMES DAILY NEEDED FOR ITCHING 90 Capsule 0 Active simvastatin (ZOCOR) 40 mg tablet Take 1 tablet by mouth once daily 90 Tablet 0 Active omeprazole (PriLOSEC) 40 mg Capsule, Delayed Release(E.C.) Take 1 capsule by mouth once daily 90 Capsule 0 Active Active Problems Patient Care Coordination No te Formatting of this note migh t be different from the original. Dr. 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 03/16/2016 H/O: stroke with residual effects 03/11/2016 Ischemic chest pain 03/11/2016 Environmental tobacco smoke exposure 09/18/2015 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 Lung mass 09/11/2015 Degenerative arthritis of thumb 03/17/2014 S/P cardiac cath-[Cath (Norm al Coronaries, Mildly dialted aortic root) - 09/2007] - 09/200703/15/2013 Dilated aortic root-[Echo (E F.63, Mild MR, LVH, Mild TR, dialated aortic root) - 07/13/2009] - 06/200903/15/2013 Rheumatic fever- Hx of 03/15/2013 CMC arthritis, thumb, degenerative 12/04/2012 Constipation 09/04/2012 Glass Eye- right eye 09/04/2012 Blindness of both eyes 09/04/2012 Other specified disorder of the esophagus 2010 Personal history of colonic polyps 09/06/2010 Esophageal reflux 12/23/2009 Bipolar disorder, unspecified 12/14/2009 Dyslipidemia 11/25/2009 Urge incontinence 07/15/2009 Anxiety state 04/08/2009 Occlusion and stenosis of ca rotid artery without mention of cerebral infarction 04/08/2009 Mitral valve disorder 04/08/2009 Essential hypertension, benign 03/11/2008 Resolved Problems Problem Noted Date Diagnosed Date Resolved Date Acute right-sided weakness 03/16/2016 1 06/04/2017 Osteoarthritis of cervical spine 12/04/2012 03/11/2016 Pure hypercholesterolemia 07/20/2010 HTN (hypertension), benign 11/25/2009 1 Essential hypertension 06/22/200903/20 Encounters Date Type Department Care Team Description 02/11/2025 External Device Data STL ABSTRACTION Provider, Abstract from Last 3 Months Immunizations Immunization Administration Dates Next Due (PNEUMOVAX 23)(50 YRS UP) PN EUMOCOCCAL POLYSACCHARIDE (PPV23) 0.5 ML, IM 03/16/2016 (PREVNAR 13)(6 WKS UP) PNEUM OCOCCAL CONJUGATE (PCV13) 0.5 ML, IM 02/26/2015 (TDVAX)(7 YRS UP) TETANUS AN D DIPHTHERIA TOXOIDS, ADSORBED (2 LF OF TETANUS TOXOID AND 2 LF OF DIPHTHERIA TOXOID), 0.5ML (PF), IM 03/11/2008 Influenza Vaccine High Dose 65+ Yrs IM 8,03/16/2016,04/03/2015 Pneumococcal conjugate, unsp ecified formulation 04/08/2009 Family History Medical History Relation Name Comments Healthy Brother 1 Gilbert Diabetes Brother 2 Tim Hypertension Brother 2 Tim Healthy Brother 3 Des Healthy Daughter Chloe Liver Disease Father Colon Cancer Maternal Aunt 1 Kellen Lung Cancer Maternal Aunt 2 Lucy Breast Cancer Maternal Aunt 3 Blanquita Cancer Maternal Grandfather Throat Stroke Maternal Grandmother Cancer Maternal Uncle Jose Colon Cancer Mother Heart Attack Mother Heart Disease Mother Hypertension Mother Pacemaker Mother Stroke Mother Tuberculosis Paternal Aunt Aliyah Healthy Sister 1 Mayra Healthy Sister 2 Ojsefina Healthy Son 1 Perico Healthy Son 2 Javan Healthy Son 3 Onel Relation Name Status Comments Brother 1 Gilbert Alive Brother 2 Tim Alive Brother 3 Des Alive Daughter Chloe Alive Father Maternal Aunt 1 Kellen Alive Maternal Aunt 2 Lucy Alive Maternal Aunt 3 Blanquita Alive Maternal Grandfather Maternal Grandmother Maternal Uncle Jose Mother Paternal Aunt Aliyah Paternal Grandfather unknown Paternal Grandmother unknown Paternal Uncle unknown Sister 1 Mayra Alive Sister 2 Josefina Alive Son 1 Perico Alive Son 2 Javan Alive Son 3 Onel Alive Social History Tobacco Use Types Packs/Day Years Used Date Smoking Tobacco: Passive Smo ke Exposure - Never Smoker Smokeless Tobacco: Never Tobacco Cessation:Counseling Given: No Comments:exposed to second hand smoke within the home Alcohol Use Standard Drinks/Week Comments No 0 (1 standard drink = 0.6 oz pur e alcohol) never Comments No Sex and Gender Information Value Date Recorded Sex Assigned at Not on file 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 Gender Identity Not on file Sexual Orientation Not on file Occupation Industry Job Start Date Job End Date Not on file Not on file Not on file Not on file Last Filed Vital Signs Vital Sign Reading Time Taken Comments Blood Pressure 170/100 10/15/2018 3:03 PM CDT Pulse 76 10/15/2018 3:03 PM CDT Temperature 36.5 C (97.7 F) 10/08/2018 1:06 PM CDT Respiratory Rate 14 10/08/2018 1:06 PM CDT Oxygen Saturation 96% 10/08/2018 1:06 PM CDT Inhaled Oxygen Concentration - - Weight 60.8 kg (134 lb) 10/15/2018 3:03 PM CDT Height 149.9 cm (4' 11 ) 10/15/2018 3:03 PM CDT Body Mass Index 27.06 10/15/2018 3:03 PM CDT Plan of Treatment Health Maintenance Due Date Last Done Comments FIT-DNA Q 3 years 1994 FIT/FOBT Q 1 year 1994 Flex Sig/CT Colonography Q 5 years 1994 ZOSTER VACCINE (1 of 2) 11/21/1999 DTAP/TDAP/TD VACCINES (1 - Tdap) 03/12/2008 03/11/20 08 OSTEOPOROSIS SCREENING 11/07/2018 11/07/2013 COLORECTAL SCREENING 08/25/2020 08/25/2010, 08/16/19 11 Colorectal Cancer Screening 08/25/2020 RSV VACCINE (60+ or ) (1 - 1-dose 75+ series) 2024 INFLUENZA VACCINE (#1) 2024 8, 03/16/2016, 04/03/2015 Medical Devices Implanted Type Area Documentation Writer Device Identifier Shelf Expiration Date Model / Serial / Lot Lead Interstim Tined Kit 3889-28 - [id number] Implanted:Qty: 1 on 04/20/2015 by Familia Mcfarlane MD at [facility] Lead N/A: Bladder [employer]- NEUROLOGIC TECH 03/28/2019 3889-28 / / [id number] Neurostimulator Interstim Ii 3058 - [id number] Implanted:Qty: 1 on 04/20/2015 by Familia Mcfarlane MD at [facility] Neuro N/A: Sacrum [employer]- NEUROLOGIC TECH 03/28/2019 3058 / [id number] / Description:MRI Conditiional for head only scans, transmit/receive coil only Revenue Enforcement Agent Intrstm Icon 3037 - [id number] Implanted:Qty: 1 on 04/20/2015 by Familia Mcfarlane MD at [facility] Neuro [employer]- NEUROLOGIC TECH 3037 / / Explanted Type Area Documentation Writer Device Identifier Shelf Expiration Date Model / Serial / Lot Lead Interstim Tined Kit 3889-28 - [id number] Implanted:Qty: 1 Explanted:Qty: 1 on 04/20/2015 at [facility] Lead N/A: Sacrum [employer]- NEUROLOGIC TECH 3889-28 / / [id number] Description:Broke/ Bent upon entry Procedures Procedure Name Priority Date/Time Associated Diagnosis Comments XR DEXA BONE DENSITY AXIAL 1 OR MORE SITES Routine 11/07/2013 1:14 PM CDT Postmenopausal state ENDOSCOPY, COLON, SCREENING Routine 08/25/2010 from Last 3 Months or Most Recently Relevant to Health Maintenance Results * XR DEXA BONE DENSITY AXIAL 1 OR MORE SITES (11/07/2013 1:14 PM CDT) Anatomical Region Laterality Modality Other Gerald Nguyen MD DIAGNOSTIC IMAGING ORDERABLES Fi nal Result * ENDOSCOPY, COLON, SCREENING (08/25/2010) us Abstract Provider GI PROCEDURE ORDERABLES Final Result Performing Organization Address City/State/[facility] Co de Phone Number [facility] from Last 3 Months or Most Recently Relevant to Health Maintenance Insurance MEDICAID [place] DUAL COMPLETE O [facility] [id number] [address] [id number] Advance Directives For more information, please contact: [phone] * Full Code (Latest Code Status on File) Date Activated Date Inactivated Comments 03/16/2016 2:40 AM 03/17/2016 5:01 PM * Full Code Date Activated Date Inactivated Comments 03/11/2016 12:44 AM 03/11/2016 8:16 PM * Full Code Date Activated Date Inactivated Comments 10/12/2015 12:59 PM 10/15/2015 12:42 PM * Full Code Date Activated Date Inactivated Comments 10/12/2015 6:14 AM 10/12/2015 12:59 PM * Full Code Date Activated Date Inactivated Comments 09/16/2015 5:33 PM 09/21/2015 3:20 PM Care Teams Transformation Lead Relationship Specialty Start Date End Date Gerald Nguyen MD PCP - General Family Practice 09/04/12
--- OUTSIDE RECORDS SUMMARY | 2025-03-21 16:49 | XMS_ITS | Encounter Summary ---
[facility] Organization [facility] Address 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 Gender Identity Not on file Sexual Orientation Not on file documented as of this encounter Plan of Treatment Not on file documented as of this encounter Procedures Procedure Name Priority Date/Time Associated Diagnosis Comments TROPONIN (W/REFLEX CKMB/CK) Stat 09/10/2007 2:10 PM CDT CBC WITH DIFFERENTIAL Stat 09/10/2007 2:10 PM CDT D-DIMER Stat 09/10/2007 2:10 PM CDT BASIC METABOLIC PANEL Stat 09/10/2007 2:10 PM CDT XR CHEST PA OR AP 1 VW Stat 09/10/2007 1:40 PM CDT documented in this encounter Results * D-DIMER (09/10/2007 2:10 PM CDT) D-DIMER QUANT <0.22 <=0.42 ug/mL FEU [facility] Comment: DVT Screen reference range <0.45 ug/mL FEU D. Dimer Interpretation: The reference range is not clearly established in uncomplicated pregnancies. Values above the upper limit of the reference range are common from the 31st to 40th week of . High negative predictive values for DVT have been reported with the current methodology, as part of a comprehensive medical examination, including risk stratification. D.DIMER (CALC) <110 <=210 ng/mL [facility] Blood specimen (specimen) 09/10/2007 2:10 PM CDT 09/10/2007 2:19 PM CDT Ray Mcleod DO HEMATOLOGY ORDERABLES Josefa l Result Performing Organization Address [facility] Co de Phone Number [facility] [address] [place] [address] * TROPONIN (W/REFLEX CKMB/CK) (09/10/2007 2:10 PM CDT) TROPONIN T 0.01 <=0.02 ng/mL [facility] TROPONIN T INTERP Negative [facility] Blood specimen (specimen) 09/10/2007 2:10 PM CDT 09/10/2007 2:19 PM CDT Ray Mcleod DO CHEMISTRY ORDERABLES Edite d Performing Organization Address [facility] Co de Phone Number [facility] [address] [place] [address] * (ABNORMAL) BASIC METABOLIC PANEL (09/10/2007 2:10 PM CDT) POTASSIUM 3.3(L) 3.5 - 4.9 mmol/L [facility] GLUCOSE 115(H) 65 - 99 mg/dL [facility] CHLORIDE 105 96 - 108 mmol/L [facility] BUN 11 6 - 20 mg/dL [facility] CREATININE 0.66 0.51 - 0.95 mg/dL [facility] SODIUM 140 135 - 145 mmol/L [facility] CO2 28 22 - 30 mmol/L [facility] CALCIUM 10.0 8.6 - 10.2 mg/dL [facility] GFR, >60 >=60 mL/min/1. 7 sq meter [facility] GFR >60 >=60 mL/min/1. 7 sq meter [facility] Comment: Estimated GFR rate interpretative information for both Americans and non- Americans is available on the [facility] Intranet at: [email or web address] Select: Lab Policies and Procedures Select: Reference Ranges - GFR Blood specimen (specimen) 09/10/2007 2:10 PM CDT 09/10/2007 2:19 PM CDT us Ray Mcleod DO CHEMISTRY ORDERABLES Edite d [facility] [address] [place] [address] * CBC WITH DIFFERENTIAL (09/10/2007 2:10 PM CDT) MCHC 34.0 31.5 - 35.5 % [facility] RBC 4.74 3.90 - 4.90 M/uL [facility] MCV 84.4 82.0 - 99.0 fL [facility] PLATELETS 241 140 - 350 K/uL [facility] MPV 11.3 9.3 - 12.4 fL [facility] RDW 13.4 11.5 - 14.5 % [facility] HEMOGLOBIN 13.6 11.8 - 14.8 g/dL [facility] MCH 28.7 27.2 - 32.6 pg [facility] WBC 7.1 4.0 - 9.8 K/uL [facility] HEMATOCRIT 40.0 35.5 - 44.0 % [facility] RDW-STDEV 41.2 37.1 - 48.7 fL [facility] BASOPHILS 1 0 - 2 % [facility] BASOPHILS ABSOLUTE 0.06 0.00 - 0.20 K/uL [facility] MONOCYTES 8 3 - 13 % [facility] MONOCYTE ABSOLUTE 0.56 0.10 - 1.30 K/uL [facility] NEUTROPHILS 50 45 - 70 % [facility] NEUTROPHIL ABSOLUTE 3.53 1.90 - 7.00 K/uL [facility] EOSINOPHILS 1 0 - 7 % [facility] EOSINOPHIL ABSOLUTE 0.10 0.00 - 0.70 K/uL [facility] LYMPHOCYTES 40 16 - 45 % [facility] LYMPHOCYTE ABSOLUTE 2.80 0.70 - 4.50 K/uL [facility] Blood specimen (specimen) 09/10/2007 2:10 PM CDT 09/10/2007 2:19 PM CDT us Ray Mcleod DO HEMATOLOGY ORDERABLES Edit ed Performing Organization Address City/State/[facility] Co de Phone Number [facility] [address] [place] [address] * XR CHEST PA OR AP (09/10/2007 1:40 PM CDT) Anatomical Region Laterality Modality Chest Other 09/10/2007 1:40 PM CDT Narrative 09/10/2007 2:54 PM CDT [address] [address] Imaging Services Procedure Completion Date Ordering Provider Accession Number CHEST SINGLE VIEW 09/10/2007 1:58:02 RAY MCLEOD [id number] PM Reason for Exam: chest pain Interpretation CHEST X-RAY SINGLE VIEW 09/10/2007 History: Chest pain. Findings: The cardiac silhouette is enlarged. There is mild prominence of the pulmonary vascularity, but no severe congestive changes. The right hemidiaphragm is slightly elevated. No pneumothorax, pleural effusions, or focal infiltrates are seen. Summary: 1. Cardiomegaly. 2. Mild prominence of pulmonary vascularity without severe congestive changes. 3. Mild asymmetric appearance to the hemidiaphragm with slight elevation of the right hemidiaphragm of uncertain significance. . Dictated by: YOHANNES GERMAIN 09/10/2007 14:31 Electronically signed by: YOHANNES GERMAIN 09/10/2007 14:54 Transcribed: 09/10/2007 14:44 SJ Admit Date: 09/10/2007 JOCELYN CHAUHAN Sex: F Admitting MD: IDALIA AKBAR Birthdate: 1950 scoop driver:FLORES EASTON CMRN:[id number] J Room: [facility]: [address] [place] [address] Procedure Note Provider, Historical - 09/10/[address] [address] Imaging Services Procedure Completion Date Ordering Provider AccessionNumber CHEST SINGLE VIEW 09/10/2007 1:58:02 RAY MCLEOD [id number] PM Reason for Exam: chest pain Interpretation CHEST X-RAY SINGLE VIEW 09/10/2007 History: Chest pain. Findings: The cardiac silhouette is enlarged. There is mildprominence of the pulmonary vascularity, but no severe congestive changes. Theright hemidiaphragm is slightly elevated. No pneumothorax, pleuraleffusions, or focal infiltrates are seen. Summary: 1. Cardiomegaly. 2. Mild prominence of pulmonary vascularity without severecongestive changes. 3. Mild asymmetric appearance to the hemidiaphragm with slightelevation of the right hemidiaphragm of uncertain significance. . Dictated by: YOHANNES GERMAIN 09/10/2007 14:31 Electronically signed by: YOHANNES GERMAIN 09/10/2007 14:54 Transcribed: 09/10/2007 14:44 SJ Admit Date: 09/10/2007 JOCELYN CHAUHAN Sex: F Admitting MD: IDALIA AKBAR Birthdate: 1950 scoop driver:FLORES EASTON CMRN:[id number] J Room: [facility]: [id number] Ray Mcleod DO DIAGNOSTIC IMAGING ORDERAB LES Final Result documented in this encounter Visit Diagnoses Not on filedocumented in this encounter Care Teams Powder Mill Operator Relationship Specialty Start Date End Date Gerald Nguyen MD PCP - General Family Practice 09/04/12 documented as of this encounter
--- OUTSIDE RECORDS SUMMARY | 2025-03-21 16:49 | XMS_ITS | Encounter Summary ---
Author Organization [employer] Address 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
--- OUTSIDE RECORDS SUMMARY | 2025-03-21 16:49 | XMS_ITS | Encounter Summary ---
Author Organization [employer] Address 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
--- OUTSIDE RECORDS SUMMARY | 2025-03-21 16:49 | XMS_ITS | Encounter Summary ---
Author Organization [facility] Address , [place] Care Team Providers Care Truck Engine Technician Name Role Phone Gerald Nguyen MD Primary Care Provider [phone] Encounter Details Date Type Department Care Team (Late st Contact Info) Description 03/18/2016 Chart Note [address], [address] [place] [address] Estella Raphael, Leader Assembler Social History Tobacco Use Types Packs/Day Years Used Date Smoking Tobacco: Passive Smo ke Exposure - Never Smoker Smokeless Tobacco: Never Alcohol Use Standard Drinks/Week Comments No 0 (1 standard drink = 0.6 oz pur e alcohol) never Comments No Sex and Gender Information Value Date Recorded Sex Assigned at Not on file 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 Gender Identity Not on file Sexual Orientation Not on file Occupation Industry Job Start Date Job End Date Not on file Not on file Not on file Not on file documented as of this encounter Plan of Treatment Not on file documented as of this encounter Visit Diagnoses Not on filedocumented in this encounter Additional Health Concerns Assessment Noted Time PHQ-9 Depression Total Score: 6 08/12/19 16 10:00 AM CDT documented as of this encounter Care Teams Truck Engine Technician Relationship Specialty Start Date End Date Gerald Nguyen MD PCP - General Family Practice 09/04/12 documented as of this encounter
[2025-03-21 17:10] VITALS: BP 102/74; PULSE 100; RESP 16; TEMP 36.8; O2SAT 98
[2025-03-21 17:45] LABS: Hematocrit 38.2 % (36-47); Hemoglobin 12.50 g/dL (11.27-16.99); Mean Corpuscular HGB Conc 32.7 g/dL (30-55); Mean Corpuscular Hemoglobin 28.8 pg (27-33); Mean Corpuscular Volume 88.0 fl (85-98); Nucleated Red Blood Cells % 0 %; Platelet Count 240 10^3/cmm (157-399); Red Blood Count 4.34 10^6/uL (3.85-5.65); White Blood Count 10.74 10^3/uL (3.29-11.43)
[2025-03-21 17:59] LABS: INR 0.90 (0.8-1.2); Prothrombin Time 12.80 SECONDS (12.1-14.9)
[2025-03-21 18:09] LABS: Alanine Aminotransferase 13 U/L (0-33); Albumin Level 4.3 g/dL (3.5-5.2); Alkaline Phosphatase 142 U/L (35-105); Anion Gap 15.2 (5-19); Aspartate Amino Transferase 24 U/L (0-32); Blood Urea Nitrogen 16 mg/dL (8-23); Calcium 9.9 mg/dL (8.5-10.5); Carbon Dioxide 30 mmol/L (22-29); Chloride 102 mmol/L (98-107); Creatinine Clr Calc Pharmacy 36.7644; Globulin 3.5 g/dL (1.3-4.6); Glucose 214 mg/dL (65-115); Osmolality Calculated 306 mOsm/kg (285-295); Potassium 3.2 mmol/L (3.5-5.1); Sodium 144 mmol/L (136-145); Total Protein 7.8 g/dL (6.6-8.7)
--- NOTE | 2025-03-21 21:15 | CTR_ITS ---
PROCEDURE INFORMATION: Exam: CT Abdomen And Pelvis With Contrast Exam date and time: 03/21/2025 9:33 PM Age: 74 years old Clinical indication: Prior surgery; Surgery date: 6+ months; Surgery type: Right lower lobectomy. Appy. Hysterectomy. Stimulator; C/O rectal bleeding starting earlier today. History of lung cancer. ; Additional info: Gi bleeding TECHNIQUE: Imaging protocol: Computed tomography of the abdomen and pelvis with contrast. Radiation optimization: All CT scans at this facility use at least one of these dose optimization techniques: automated exposure control; mA and/or kV adjustment per patient size (includes targeted exams where dose is matched to clinical indication); or iterative reconstruction. Contrast material: OMNI 350; Contrast volume: 100 ml; Contrast route: INTRAVENOUS (IV); COMPARISON: CR XR hip RT 2-3V wo/w pel* [id number] 02/28/2024 1:46 PM RADIATION DOSE METRICS: Total DLP (mGy-cm): 526.2 FINDINGS: Tubes, catheters and devices: Right-sided pain management/neurostimulator device in place. Stable right-sided pain management/neurostimulator device in place. Liver: Normal. No mass. Gallbladder and biliary ducts: Normal. No calcified stones. No ductal dilation. Pancreas: Normal. No ductal dilation. Spleen: Normal. No splenomegaly. Adrenal glands: Normal. No mass. Kidneys and ureters: Normal. No hydronephrosis. Stomach and bowel: Severe colonic diverticulosis. Possible previous partial resection in the region of the sigmoid colon with anastomosis. Appendix: No evidence of appendicitis. Intraperitoneal space: Unremarkable. No free air. No significant fluid collection. Vasculature: Calcification of the abdominal aorta and/or iliac arteries consistent with atherosclerotic vessel disease. One or more calcified pelvic phleboliths. Lymph nodes: Unremarkable. No enlarged lymph nodes. Urinary bladder: Unremarkable as visualized. Reproductive: Status post hysterectomy. Bones/joints: Moderate to severe multilevel lower lumbar facet hypertrophy and degenerative change. Soft tissues: Unremarkable. CT/CT abdomen pelvis w con* [id number] IMPRESSION: 1. Severe colonic diverticulosis. 2. Possible previous partial resection in the region of the sigmoid colon with anastomosis.
[2025-03-21] MEDS: iohexol 350 mg/mL 500 mL Btl (per mL) IV (21:36)
[2025-03-21 21:50] LABS: INR 0.90 (0.8-1.2); Prothrombin Time 12.80 SECONDS (12.1-14.9)
[2025-03-21 21:51] LABS: Partial Thromboplastin Time 31.9 SECONDS (23.9-36.7)
[2025-03-21 22:03] LABS: Glucose Urine UA Negative (Normal); Nitrate Urine Positive (Negative); Specific Gravity, Urine 1.014 (1.005-1.030)
[2025-03-21 22:08] LABS: Add Urine Microscopic? YES
[2025-03-21 22:44] VITALS: PULSE 93; O2SAT 92
--- NOTE | 2025-03-21 22:44 | W.ED.GIBLEED ---
HPI - GI Bleed General: Chief complaint: GI Bleed Stated complaint: rectal bleeding Time Seen by Provider: 03/21/25 21:14 History of Present Illness: 74-year-old female presenting with rectal bleeding. Around 4 PM today she had an urge to have a bowel movement. She said when she pulled down her undergarments, there was some bright red blood. She says that she had quite a bit of blood in the toilet after that. She says there was no stool associated with this. She was not having significant abdominal pain. She is a bit tender now. No bleeding since 4 PM she says. She called her doctor, and was directed here. She says she had a colonoscopy 4 to 5 years ago that was clear. She denies any fever. No vomiting. Related Data Home Medications ?Medication ?Instructions ?Recorded ?Confirmed aspirin 81 mg tablet,delayed 81 mg PO DAILY 07/23/19 03/12/25 release (Adult Low Dose Aspirin) buspirone 5 mg tablet 5 mg PO TID 07/23/19 03/12/25 clopidogrel 75 mg tablet 75 mg PO DAILY 07/23/19 03/12/25 diphenhydramine HCl 50 mg capsule 50 mg PO DAILY 07/23/19 03/12/25 duloxetine 60 mg capsule,delayed 60 mg PO BID 07/23/19 03/12/25 release furosemide 20 mg tablet 20 mg PO DAILY 07/23/19 03/12/25 levothyroxine 75 mcg capsule 75 mcg PO DAILY 07/23/19 03/12/25 losartan 100 mg tablet 100 mg PO DAILY 07/23/19 03/12/25 quetiapine 300 mg tablet 300 mg PO DAILY 07/23/19 03/12/25 quetiapine 50 mg tablet 50 mg PO DAILY 07/23/19 03/12/25 vitamin B complex (B 1 tab PO DAILY 07/23/19 03/12/25 Complex-Vitamin B12 tablet) gabapentin 100 mg capsule 100 mg PO TID 10/13/20 03/12/25 hydroxyzine pamoate 25 mg capsule 25 mg PO TID PRN itching 10/13/20 03/12/25 biotin 5 mg tablet 5 mg PO DAILY 04/03/23 03/12/25 psyllium 1 packet PO TID 04/03/23 03/12/25 Previous Rx's ?Medication ?Instructions ?Recorded oxybutynin chloride 15 mg 15 mg PO DAILY #30 tabs 07/23/19 tablet,extended release 24 hr potassium chloride 20 mEq 20 meq PO DAILY #90 tabs 08/10/21 tablet,extended release(part/cryst) (Klor-Con M) methotrexate sodium 2.5 mg tablet See Rx Instructions .Route 10/11/21 .COMPLEX #30 tabs folic acid 1 mg tablet See Rx Instructions .Route 04/11/22 .COMPLEX #90 tabs naproxen 500 mg tablet (Naprosyn) 500 mg PO BID PRN pain #20 tabs 05/24/22 amlodipine 10 mg tablet 10 mg PO DAILY 90 days #90 tabs 09/19/22 atorvastatin 40 mg tablet 40 mg PO DAILY #30 tabs 09/20/22 fluticasone 250 mcg-salmeterol 50 1 inh inhalation BID #60 ea 01/16/23 mcg/dose blistr powdr for inhalation (Advair Diskus) diclofenac sodium 75 mg 75 mg PO Q12H PRN pain #20 tabs 03/31/23 tablet,delayed release tizanidine 4 mg tablet 2 mg (1/2 x 4 mg) PO Q6H PRN 03/31/23 muscle spasticity #10 tabs nitroglycerin 0.4 mg sublingual 0.4 mg sublingual Q5M PRN chest 03/14/24 tablet pain 30 days #30 tabs carvedilol 25 mg tablet 25 mg PO BID 90 days #180 tabs 11/05/24 hydralazine 25 mg tablet 25 mg PO TID #90 tabs 11/05/24 hydrocortisone acetate 25 mg 25 mg MI Q12H 3 days #12 ea 03/21/25 rectal suppository (Anusol-HC) Allergies Allergy/AdvReac Type Severity Reaction Status Date / Time No Known Allergies Allergy Verified 03/21/25 17:15 PFSH ED PFSH: Medical History Chronic steroid use Immunization counseling High risk medication use 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 Thoracic aortic aneurysm (TAA) Dyslipidemia (high LDL; low HDL) Benign essential HTN SOB (shortness of breath) Atypical chest pain H/O: lung cancer Hypertension Hyperlipidemia 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 History of thyroid cancer Urgency of urination Urgency incontinence Surgical History H/O total thyroidectomy also had a thyroid biopsy 09/14/2015 H/O: hysterectomy S/P appendectomy 1979 H/O cardiac catheterization 09/2007 History of lobectomy of lung right lower lung History of bladder surgery History of eye surgery Family History Mother Colon cancer Hyperlipidemia Hypertension Stroke Heart disease CAD (coronary artery disease) Cancer Family/Other Breast cancer aunt maternal Cancer Family/Other Colon cancer uncle, maternal Stroke uncle maternal Brother Hypertension Brother Hyperlipidemia Grandmother Stroke maternal Other Suicide Denies family history of Clotting disorder Chronic kidney disease (CKD) Anesthesia complication Bleeding disorder Lung disease Social History Smoking and tobacco/nicotine status: never used tobacco/nicotine Second hand smoke exposure: Yes Alcohol intake: never Substance/Drug Use: never Lives independently: Yes Household members: family Marital status: / Current occupational status: disabled Pets and animals: Yes Do you think of yourself as: Straight/Heterosexual Current gender identity: Female Physical Exam Const: COMMON NORMALS: no acute distress GENERAL APPEARANCE: cooperative; not ill appearing and not frail appearing HENMT: COMMON NORMALS: normocephalic, atraumatic and Normal external nose present HEAD & SCALP: normocephalic and atraumatic FACE & SINUS: normal facial exam and face symmetric NOSE: Normal external nose present Eye: COMMON NORMALS: Equal, round and reactive pupils present and EOMs intact bilaterally PUPIL: Yes Equal, round and reactive pupils present Neck/C-Spine: GENERAL: Yes trachea midline Chest: CHEST: Yes Symmetrical chest wall rise Resp: COMMON NORMALS: normal respiratory effort, No retractions, No use of accessory muscles and clear to auscultation bilaterally AUSCULTATION: clear to auscultation bilaterally Cardio: COMMON NORMALS: regular rate and regular rhythm RATE: regular rate RHYTHM: regular rhythm GI: COMMON NORMALS: Normal to inspection, nondistended, normoactive bowel sounds present RECTAL EXAM: heme positive stool, External hemorrhoid(s) present, No Rectal prolapse and no fissure noted Extremity: COMMON NORMALS: no pedal edema Neuro: HALEY COMA SCALE: document GCS findings Haley coma scale eye opening: Spontaneous Haley coma scale verbal response: Orientated [place] coma scale motor response: [place] commands Haley coma scale total score: 15 SENSORY EXAM: Yes extremities (intact) Psych: COMMON NORMALS: speech normal SPEECH: Yes normal speech Skin: COMMON NORMALS: no rashes or lesions noted GENERAL SKIN EXAM: no rashes or lesions noted Course Vital Signs: Vital signs: Vital Signs Temperature 98.2 F 03/21/25 17:10 Pulse Rate 102 H 03/21/25 23:38 Respiratory Rate 16 03/21/25 23:38 Blood Pressure 196/112 03/21/25 23:38 Pulse Oximetry 96 03/21/25 23:38 Oxygen Delivery Me thod Nasal Cannula 03/21/25 23:11 Oxygen Flow Rate 2.5 03/21/25 23:11 MDM - GI Bleed Medical Decision Making Vitals are stable here. Last blood pressure is actually hypertensive. Her CBC is normal, with a hemoglobin of 12.5. Potassium is mildly low at 3.2. BUN is not elevated. Blood sugar is 214. CT shows severe colonic diverticulosis without diverticulitis. Mention is made of possible anastomosis in the sigmoid region previously, but the patient denies having had colon surgery. She does have hemorrhoids on rectal exam. Initially treated for hemorrhoidal bleeding. Case management will be asked to make her a follow-up appointment with surgery to see if she needs a repeat colonoscopy given the CT findings. She knows to return for continued bleeding Lab Data 03/21/25 17:19 03/21/25 17:19 Radiology Impressions Abdomen/Pelvis CT 03/21/25 21:15 IMPRESSION: 1. Severe colonic diverticulosis. 2. Possible previous partial resection in the region of the sigmoid colon with anastomosis. Laboratory Results WBC 10.74 10^3/uL (3.29-11.43) 03/21/25 17:19 RBC 4.34 10^6/uL (3.85-5.65) 03/21/25 17:19 Hgb 12.50 g/dL (11.27-16.99) 03/21/25 17:19 Hct 38.2 % (36-47) 03/21/25 17:19 MCV 88.0 fl (85-98) 03/21/25 17:19 MCH 28.8 pg (27-33) 03/21/25 17:19 MCHC 32.7 g/dL (30-55) 03/21/25 17:19 RDW 13.3 % (12.1-15.1) 03/21/25 17:19 Plt Count 240 10^3/cmm (157-399) 03/21/25 17:19 MPV 9.6 fL (7.4-10.4) 03/21/25 17:19 Neut % (Auto) 64.0 % 03/21/25 17:19 Lymph % (Auto) 24.4 % 03/21/25 17:19 [place] % (Auto) 8.3 % 03/21/25 17:19 Eos % (Auto) 2.3 % 03/21/25 17:19 Baso % (Auto) 0.7 % 03/21/25 17:19 Neut # (Auto) 6.88 10^3/uL (1.8-7.7) 03/21/25 17:19 Lymph # (Auto) 2.6 10^3/uL (0.8-4.8) 03/21/25 17:19 [place] # (Auto) 0.9 10^3/uL (0.2-0.9) 03/21/25 17:19 Eos # (Auto) 0.3 10^3/uL (0.0-0.8) 03/21/25 17:19 Baso # (Auto) 0.1 10^3/uL (0.0-0.1) 03/21/25 17:19 Nucleated RBC % (auto) 0 % 03/21/25 17:19 Nucleated RBCs # 0.0 /100WBC 03/21/25 17:19 PT 12.80 SECONDS (12.1-14.9) 03/21/25 21:32 INR 0.90 (0.8-1.2) 03/21/25 21:32 APTT 31.9 SECONDS (23.9-36.7) 03/21/25 21:32 Sodium 144 mmol/L (136-145) 03/21/25 17:19 Potassium 3.2 mmol/L (3.5-5.1) L 03/21/25 17:19 Chloride 102 mmol/L (98-107) 03/21/25 17:19 Carbon Dioxide 30 mmol/L (22-29) H 03/21/25 17:19 Anion Gap 15.2 (5-19) 03/21/25 17:19 BUN 16 mg/dL (8-23) 03/21/25 17:19 Creatinine 1.1 mg/dL (0.5-0.9) H 03/21/25 17:19 GFR Calculation Not Reportable 03/21/25 17:19 Glucose 214 mg/dL (65-115) H 03/21/25 17:19 Calculated Osmolality 306 mOsm/kg (285-295) H 03/21/25 17:19 Calcium 9.9 mg/dL (8.5-10.5) 03/21/25 17:19 Total Bilirubin 0.3 mg/dL (0.15-1.2) 03/21/25 17:19 AST 24 U/L (0-32) 03/21/25 17:19 ALT 13 U/L (0-33) 03/21/25 17:19 Alkaline Phosphatase 142 U/L (35-105) H 03/21/25 17:19 Total Protein 7.8 g/dL (6.6-8.7) 03/21/25 17:19 Albumin 4.3 g/dL (3.5-5.2) 03/21/25 17:19 Globulin 3.5 g/dL (1.3-4.6) 03/21/25 17:19 Urine Color Yellow (Yellow) 03/21/25 21:53 Urine Appearance Clear (CLEAR) 03/21/25 21:53 Urine pH 7.5 (5-7) 03/21/25 21:53 Ur Specific [place] 1.014 (1.005-1.030) 03/21/25 21:53 Urine Protein Negative (Negative) 03/21/25 21:53 Urine Glucose (UA) Negative (Normal) 03/21/25 21:53 Urine Ketones Negative (Negative) 03/21/25 21:53 Urine Blood Negative (Negative) 03/21/25 21:53 Urine Nitrate Positive (Negative) A 03/21/25 21:53 Urine Bilirubin Negative (Negative) 03/21/25 21:53 Urine Urobilinogen 0.2 mg/dL (Negative) 03/21/25 21:53 Ur Leukocyte Esterase 1+ (Negative) A 03/21/25 21:53 Urine RBC 0-2 /hpf (0-2) 03/21/25 21:53 Urine WBC 11-20 /hpf (0-5) H 03/21/25 21:53 Ur Squamous Epith Cells 0-5 /hpf (0-5) 03/21/25 21:53 Amorphous Sediment Not Reportable 03/21/25 21:53 Urine Bacteria 4+ /hpf (NONE) H 03/21/25 21:53 Hyaline Casts 0.40 /lpf 03/21/25 21:53 All radiology interpretation(s) finalized by discharge Discharge Plan Discharge Patient Disposition: Home Clinical Impression: Lower gastrointestinal hemorrhage Condition: Stable Prescriptions: New hydrocortisone acetate [Anusol-HC] 25 mg suppository 25 mg MI Q12H 3 Days Qty: 12 0RF No Action aspirin [Adult Low Dose Aspirin] 81 mg tablet,delayed release (DR/EC) 81 mg PO DAILY buspirone 5 mg tablet 5 mg PO TID clopidogrel 75 mg tablet 75 mg PO DAILY diphenhydramine HCl 50 mg capsule 50 mg PO DAILY duloxetine 60 mg capsule,delayed release(DR/EC) 60 mg PO BID furosemide 20 mg tablet 20 mg PO DAILY levothyroxine 75 mcg capsule 75 mcg PO DAILY losartan 100 mg tablet 100 mg PO DAILY quetiapine 300 mg tablet 300 mg PO DAILY quetiapine 50 mg tablet 50 mg PO DAILY vitamin B complex [B Complex-Vitamin B12] Tablet 1 tab PO DAILY oxybutynin chloride 15 mg tablet extended release 24hr 15 mg PO DAILY Qty: 30 12RF hydroxyzine pamoate 25 mg capsule 25 mg PO TID PRN (Reason: itching) gabapentin 100 mg capsule 100 mg PO TID amlodipine 10 mg tablet 10 mg PO DAILY 90 Days Qty: 90 3RF fluticasone propion-salmeterol [Advair Diskus] 250-50 mcg/dose blister with device 1 inh inhalation BID Qty: 60 6RF nitroglycerin 0.4 mg tablet, sublingual 0.4 mg sublingual Q5M PRN (Reason: chest pain) 30 Days Qty: 30 3RF Rx Instructions: until response; do not exceed 3 doses per episode hydralazine 25 mg tablet 25 mg PO TID Qty: 90 5RF carvedilol 25 mg tablet 25 mg PO BID 90 Days Qty: 180 3RF Rx Instructions: must administer with a meal/food biotin 5 mg tablet 5 mg PO DAILY psyllium Packet 1 packet PO TID Rx Instructions: mix into at least 8 oz of water or juice before administering potassium chloride [Klor-Con M20] 20 mEq tablet,ER particles/crystals 20 meq PO DAILY Qty: 90 3RF Rx Instructions: For the first 3 days take 20 mEq twice a day, then 20 mg daily. methotrexate sodium 2.5 mg tablet See Rx Instructions .ROUTE .COMPLEX Qty: 30 3RF Dose Instruction: TAKE SIX TABLETS BY MOUTH ON MONDAY EACH WEEK Rx Instructions: TAKE SIX TABLETS BY MOUTH ON MONDAY EACH folic acid 1 mg tablet See Rx Instructions .ROUTE .COMPLEX Qty: 90 0RF Dose Instruction: Take 1 tablet by mouth once daily Rx Instructions: Take 1 tablet by mouth once daily atorvastatin 40 mg tablet 40 mg PO DAILY Qty: 30 0RF Naprosyn 500 mg tablet 500 mg PO BID PRN (Reason: pain) Qty: 20 0RF tizanidine 4 mg tablet 2 mg PO Q6H PRN (Reason: muscle spasticity) Qty: 10 0RF Rx Instructions: do not exceed 3 doses per 24 hrs diclofenac sodium 75 mg tablet,delayed release (DR/EC) 75 mg PO Q12H PRN (Reason: pain) Qty: 20 0RF Discharge Orders: Discharge ED (Routine); Ordered 03/21/25 Ordered By: Hugo Wyman Referrals: Gerald Brantley MD [Physician, General Surgery] - 4-7 days Cecilia Rubio FNP [Primary Care Provider, Unknown] Patient Instructions: Gastrointestinal Bleeding (ED), Hemorrhoids (ED), Opioid Safety, Pain Management, Patient Portal & Tc Instructions Activity Restrictions/Additional Instructions: Medication as directed. Case management should call you next week regarding a surgery follow-up appointment. Return for continued bleeding from the rectum for more than 24 hours, or brisk bleeding as you experience before with significant clotting. Return also for fever, worsening abdominal pain, etc. Print Language: Spanish Coding Level of Care Code ED [employer] Technician for [facility]
[2025-03-21 23:11] VITALS: BP 196/112; PULSE 90; RESP 15; O2SAT 97
[2025-03-21 23:38] VITALS: BP 196/112; PULSE 102; RESP 16; O2SAT 96
== END 2025-03-21 23:39 | disposition home or self-care (01) ==
PROVIDERS: Emergency Medicine; Emergency Provider Emergency Medicine; PCP Nurse Practitioner Family
DX: K92.2 Gastrointestinal hemorrhage, unspecified (principal); Z79.82 Long term (current) use of aspirin; Z79.02 Long term (current) use of antithrombotics/antiplatelets; E78.5 Hyperlipidemia, unspecified; I10 Essential (primary) hypertension; Z85.850 Personal history of malignant neoplasm of thyroid; Z85.118 Personal history of other malignant neoplasm of bronchus and lung; Z85.89 Personal history of malignant neoplasm of other organs and systems
CPT/HCPCS: 36415; 74177; 80053; 81001; 85025; 85610; 85730; 87077; 87086; 87186; 99285